=== PATIENT | female | born 1985 | race Caucasian/White ===

== ENCOUNTER 2017-09-26 18:25 | Emergency (ER) | payer MEDICAID ==
[2017-09-26] MEDS ORDERED: ASPIRIN 81 MG TABLET, CHEWABLE PO ONE (19:10)
[2017-09-26] MEDS ORDERED: MECLIZINE HCL 25 MG TABLET PO ONE (19:11)
--- NOTE | 2017-09-26 19:12 | ER Document Report ---
ED Medical Screen (RME) - General Chief Complaint: Chest Pain > 30 Stated Complaint: CHEST PAIN Time Seen by Provider: 09/26/17 19:10 Mode of Arrival: Ambulatory Information source: Patient Notes: Patient presents complaining of left-sided chest pain off and on for the past week that got worse around 5:00 this evening. Patient does report nausea and episode of sweating at home. Patient denies any cough or fever. Patient denies any medical history. Patient does report significant family history for IA at the age of 55. Patient does complain of feeling dizzy in which she describes as feeling off balance. I have greeted and performed a rapid initial assessment of this patient. A comprehensive ED assessment and evaluation of the patient, analysis of test results and completion of the medical decision making process will be conducted by additional ED providers. TRAVEL OUTSIDE OF THE [place] IN LAST 30 DAYS: No - Related Data Allergies/Adverse Reactions: azithromycin Allergy (Verified 09/26/17 18:26) Penicillins Allergy (Verified 09/26/17 18:26) contrast dye Allergy (Uncoded 09/26/17 18:26) Physical Exam - Vital signs Vitals: Temp Pulse Resp BP Pulse Ox 98.8 F 82 14 130/70 H 98 09/26/17 18:48 09/26/17 18:48 09/26/17 18:48 09/26/17 18:48 09/26/17 18:48 - Respiratory Respiratory status: No respiratory distress Chest status: Nontender Breath sounds: Normal. No: Rales, Rhonchi, Stridor, Wheezing Course - Vital Signs Vital signs: Temp Pulse Resp BP Pulse Ox 98.8 F 82 14 130/70 H 98 09/26/17 18:48 09/26/17 18:48 09/26/17 18:48 09/26/17 18:48 09/26/17 18:48
--- NOTE | 2017-09-26 19:32 | RADIOLOGY REPORT (SQ) ---
EXAM DESCRIPTION: CHEST PA/LAT COMPLETED DATE/TIME: 09/26/2017 7:24 pm REASON FOR STUDY: cp COMPARISON: None. EXAM PARAMETERS: NUMBER OF VIEWS: two views TECHNIQUE: Digital Frontal and Lateral radiographic views of the chest acquired. RADIATION DOSE: NA LIMITATIONS: none FINDINGS: LUNGS AND PLEURA: No opacities, masses or pneumothorax. No pleural effusion. MEDIASTINUM AND HILAR STRUCTURES: No masses or contour abnormalities. HEART AND VASCULAR STRUCTURES: Heart normal size. No evidence for failure. BONES: No acute findings. HARDWARE: None in the chest. OTHER: No other significant finding. IMPRESSION: NO SIGNIFICANT RADIOGRAPHIC FINDING IN THE CHEST. TECHNICAL DOCUMENTATION: JOB ID: [id number] [employer]- All Rights Reserved
[2017-09-26 19:48] LABS: ABSOLUTE BASOPHILS # (AUTO) 0.1 10^3/uL (0.0-0.2); ABSOLUTE EOSINOPHILS # (AUTO) 0.2 10^3/uL (0.0-0.6); ABSOLUTE LYMPHOCYTES (AUTO) 2.9 10^3/uL (0.5-4.7); ABSOLUTE MONOCYTES (AUTO) 0.7 10^3/uL (0.1-1.4); ABSOLUTE NEUT (AUTO) 7.2 10^3/uL (1.7-8.2); BASOPHILS % (AUTO) 0.8 % (0-2); EOSINOPHILS % (AUTO) 2.2 % (0-6); HEMOGLOBIN 14.8 g/dL (12.0-15.5); MEAN CORPUSCULAR HEMOGLOBIN 30.2 pg (27.0-33.4); MEAN CORPUSCULAR HGB CONC 33.6 g/dL (32.0-36.0); MEAN CORPUSCULAR VOLUME 90 fl (80-97); MONOCYTES % (AUTO) 5.9 % (3-13); PLATELET COUNT 353 10^3/uL (150-450); SEGMENTED NEUTROPHILS % (AUTO) 65.1 % (42-78); TOTAL CELLS COUNTED % (AUTO) 100 %; WHITE BLOOD COUNT 11.1 10^3/uL (4.0-10.5)
[2017-09-26 20:01] LABS: ALANINE AMINOTRANSFERASE 25 U/L (9-52); ALBUMIN 4.8 g/dL (3.5-5.0); ALKALINE PHOSPHATASE 53 U/L (38-126); ANION GAP 11 (5-19); ASPARTATE AMINO TRANSFERASE 17 U/L (14-36); BILIRUBIN,DIRECT 0.2 mg/dL (0.0-0.4); BILIRUBIN,TOTAL 0.2 mg/dL (0.2-1.3); BLOOD UREA NITROGEN 16 mg/dL (7-20); CARBON DIOXIDE 27 mmol/L (22-30); CHLORIDE 103 mmol/L (98-107); CREATINE KINASE 51 U/L (30-135); GLUCOSE 95 mg/dL (75-110); LIPASE 70.1 U/L (23-300); POTASSIUM 4.3 mmol/L (3.6-5.0); SODIUM 141.1 mmol/L (137-145); TOTAL PROTEIN 7.4 g/dL (6.3-8.2)
--- NOTE | 2017-09-26 20:08 | EKG REPORT ---
SEVERITY:- NORMAL ECG - SINUS RHYTHM : Confirmed by: Ferny Kidd 26-Sep-2017 20:07:57
[2017-09-26 20:19] LABS: CREATINE KINASE MB < 0.22 ng/mL (<4.55); TROPONIN I < 0.012 ng/mL
--- NOTE | 2017-09-26 20:29 | ER Document Report ---
ED General - General Chief Complaint: Chest Pain > 30 Stated Complaint: CHEST PAIN Time Seen by Provider: 09/26/17 19:10 Mode of Arrival: Ambulatory Notes: Patient is a 32-year-old female without past medical history, current everyday smoker who presents with 1 week of intermittent chest pain, intermittent shortness of breath all which became much worse today. Patient states today " it all just hit me" and she has had a dull, constant, throbbing, pressure-like sensation of her left chest for approximately past 12-14 hours. She notes that she occasionally feels short of breath and feels like she cannot always get a good deep breath. She also notes that sometimes her chest wall hurts more when she breathes. She denies any history of similar symptoms in the past. She has no prior history of DVT or pulmonary embolus. She does not use estrogen. She denies any hemoptysis, fever, cough, sputum production, trauma to the affected area, abdominal pain, vomiting or diaphoresis. Exertion does not worsen her symptoms. She has no prior cardiac history. She has not seen a primary care doctor regarding today's concerns. TRAVEL OUTSIDE OF THE [place] IN LAST 30 DAYS: No - Related Data Allergies/Adverse Reactions: azithromycin Allergy (Verified 09/26/17 18:26) Penicillins Allergy (Verified 09/26/17 18:26) contrast dye Allergy (Uncoded 09/26/17 18:26) Past Medical History - General Information source: Patient - Social History Smoking Status: Current Every Day Smoker Chew tobacco use (# tins/day): No Frequency of alcohol use: Occasional Drug Abuse: None Lives with: Parents Family History: Reviewed & Not Pertinent Patient has suicidal ideation: No Patient has homicidal ideation: No Renal/ Medical History: Denies: Hx Peritoneal Dialysis Psychiatric Medical History: Reports: Hx Depression Past Surgical History: Reports: Hx Gynecologic Surgery - DNC and , Hx Orthopedic Surgery - nose Review of Systems - Review of Systems Notes: Constitutional: Negative for fever. HENT: Negative for sore throat. Eyes: Negative for visual changes. Cardiovascular: Positive for chest pain. Respiratory: Positive for shortness of breath. Gastrointestinal: Negative for abdominal pain, vomiting or diarrhea. Genitourinary: Negative for dysuria. Musculoskeletal: Negative for back pain. Skin: Negative for rash. Neurological: Negative for headaches, weakness or numbness. 10 point ROS negative except as marked above and in HPI. Physical Exam - Vital signs Vitals: Temp Pulse Resp BP Pulse Ox 98.8 F 82 14 130/70 H 98 09/26/17 18:48 09/26/17 18:48 09/26/17 18:48 09/26/17 18:48 09/26/17 18:48 Interpretation: Normal Notes: PHYSICAL EXAMINATION: GENERAL: Well-appearing, well-nourished and in no acute distress. HEAD: Atraumatic, normocephalic. EYES: Pupils equal round and reactive to light, extraocular movements intact, sclera anicteric, conjunctiva are normal. ENT: nares patent, oropharynx clear without exudates. Moist mucous membranes. NECK: Normal range of motion, supple without lymphadenopathy LUNGS: Breath sounds clear to auscultation bilaterally and equal. No wheezes rales or rhonchi. HEART: Regular rate and rhythm without murmurs ABDOMEN: Soft, nontender, normoactive bowel sounds. No guarding, no rebound. No masses appreciated. EXTREMITIES: Normal range of motion, no pitting or edema. No cyanosis. NEUROLOGICAL: No focal neurological deficits. Moves all extremities spontaneously and on command. PSYCH: Normal mood, normal affect. SKIN: Warm, Dry, normal turgor, no rashes or lesions noted. Course - Re-evaluation Re-evalutation: 09/26/17 20:24 Presentation of chest pain in an otherwise well appearing patient. Low clinical suspicion for ACS given clinical history, exam, EKG without ST elevations or depressions, and negative initial troponin. HEART score less than or equal to 3. Do have somewhat of a concern for pulmonary embolus as patient is a smoker and does report some pleuritic component to her pain as well as some mild shortness of breath. Although she is PERC criteria negative her clinical history is concerning enough that I will proceed with a d-dimer to further exclude this diagnosis. CXR without evidence of pneumothorax or pneumonia. No widened mediastinum. Aortic dissection also seems unlikely given history, symmetric pulses, CXR, and vitals. Given the duration of the patient's symptoms I do not believe serial troponin markers are indicated. 09/26/17 21:33 D-dimer is negative. Patient's pain is improved. The exact etiology of her chest pain is unclear at this time it does not appear for any acute life- threatening pathology. At this time will discharge with return precautions and follow-up recommendations. Verbal discharge instructions given a the bedside and opportunity for questions given. Medication warnings reviewed. Patient is in agreement with this plan and has verbalized understanding of return precautions and the need for primary care follow-up in the next 24-72 hours. - Vital Signs Vital signs: Temp Pulse Resp BP Pulse Ox 98.4 F 79 14 130/66 H 97 09/26/17 21:50 09/26/17 21:50 09/26/17 18:48 09/26/17 21:50 09/26/17 21:50 - Laboratory Result Diagrams: 09/26/17 19:36 09/26/17 19:36 Laboratory results interpreted by me: 09/26/17 19:36 WBC 11.1 H - Diagnostic Test Radiology reviewed: Image reviewed, Reports reviewed Radiology results interpreted by me: 09/26/17 21:34 Chest x-ray: No acute will treat a pneumothorax - EKG Interpretation by Me Additional EKG results interpreted by me: 09/26/17 21:35 Sinus rhythm. Rate 79. No ST elevations or depressions. QTC is 395. Discharge - Discharge Clinical Impression: Chest pain Qualifiers: Chest pain type: unspecified Qualified Code(s): R07.9 - Chest pain, unspecified Fatigue Qualifiers: Fatigue type: unspecified Qualified Code(s): R53.83 - Other fatigue Condition: Good Disposition: HOME, SELF-CARE Additional Instructions: You were seen today for chest pain. The exact cause of your pain is unclear. However, based on your cardiac enzyme testing, chest x-ray, and EKG it does not appear that it is from an immediately life-threatening cause at this time. Although your testing here is normal is critical that you follow-up with your primary care physician for continued evaluation of this chest pain and possible stress testing. I recommended you see your physician within the next 24-48 hours to be evaluated for consideration of a stress test. Please return to emergency department immediately if you have worsening of your chest pain, shortness of breath, vomiting, become unable to exert yourself due to pain or difficulty breathing, you pass out, or have any pain that radiates into your arms, jaw, or back. Please also return if you have any additional symptoms that are concerning to you. Referrals: OMAYRA DANIEL MD [NO LOCAL MD] - Follow up as needed
[2017-09-26] MEDS ORDERED: LIDOCAINE 5% (700 MG) TRANSDERMAL ADH..PATCH TP ONE (20:30)
[2017-09-26 22:00] VITALS: BP 130/66
== END 2017-09-26 22:01 | disposition home or self-care (01) ==
LOC: ER 18:25
DX: R07.89 Other chest pain (principal); R07.81 Pleurodynia; R06.02 Shortness of breath; R53.83 Other fatigue; F17.200 Nicotine dependence, unspecified, uncomplicated; Z88.0 Allergy status to penicillin; Z88.1 Allergy status to other antibiotic agents; Z91.041 Radiographic dye allergy status
CPT/HCPCS: 93005; 99285; 36415; 82553; 82550; 83690; 84703; 85025; 80053; 84484; 85379; 71046; 93010; J3490

== ENCOUNTER → 2017-10-09 | Outpatient (CLI) | payer MEDICAID ==
--- NOTE | 2017-10-09 14:59 | RADIOLOGY REPORT (SQ) ---
EXAM DESCRIPTION: WRIST RIGHT 3 VIEWS COMPLETED DATE/TIME: 10/09/2017 2:46 pm REASON FOR STUDY: RIGHT WRIST PAIN M25.531 PAIN IN RIGHT WRIST COMPARISON: None. NUMBER OF VIEWS: Three views. TECHNIQUE: AP, lateral, and oblique radiographic images acquired of the right wrist. LIMITATIONS: None. FINDINGS: MINERALIZATION: Normal. BONES: No acute fracture or dislocation. No worrisome bone lesions. Normal alignment. SOFT TISSUES: No soft tissue swelling. No foreign body. OTHER: No other significant finding. IMPRESSION: NEGATIVE STUDY OF THE RIGHT WRIST. NO RADIOGRAPHIC EVIDENCE OF ACUTE INJURY. TECHNICAL DOCUMENTATION: JOB ID: [id number] [employer]- All Rights Reserved
== END ==
LOC: OD 14:20
PROVIDERS: ATTEND Nurse Practitioner Family
DX: M25.531 Pain in right wrist (principal)

== ENCOUNTER 2018-02-16 10:23 | Emergency (ER) | payer SELFPAY ==
[2018-02-16 10:30] VITALS: BP 126/72
--- NOTE | 2018-02-16 11:24 | ER Document Report ---
HPI - HPI Pain Level: 2 Notes: Patient is a 32-year-old female with no significant past medical history who presents to the ED complaining of redness and swelling to the lateral side of the left second toe 2-3 days. Patient states that she was applying Neosporin to the area without any relief. She has not noticed any purulent discharge or red streaks. Patient still able to ambulate, but does have pain associated. Denies any injury. Patient does state she has an allergy to azithromycin penicillins which causes a rash. No other concerns or complaints at this time. Denies any headache, fever, URI, sore throat, chest pain, palpitations, syncope, cough, shortness of breath, wheeze, dyspnea, abdominal pain, nausea/ vomiting/diarrhea, urinary retention, dysuria, hematuria, numbness/tingling, muscle paralysis/weakness, or rash. - ROS Systems Reviewed and Negative: Yes All other systems reviewed and negative - MUSCULOSKELETAL Musculoskeletal: REPORTS: Extremity pain - L Foot Past Medical History - Social History Smoking Status: Current Every Day Smoker Chew tobacco use (# tins/day): No Frequency of alcohol use: Rare Drug Abuse: None Family History: Reviewed & Not Pertinent Patient has suicidal ideation: No Patient has homicidal ideation: No Renal/ Medical History: Denies: Hx Peritoneal Dialysis Psychiatric Medical History: Reports: Hx Depression Past Surgical History: Reports: Hx Gynecologic Surgery - DNC and , Hx Orthopedic Surgery - nose Vertical Provider Document - CONSTITUTIONAL Agree With Documented VS: Yes Notes: PHYSICAL EXAMINATION: GENERAL: Well-appearing, well-nourished and in no acute distress. LUNGS: Breath sounds clear to auscultation bilaterally and equal. No wheezes rales or rhonchi. HEART: Regular rate and rhythm without murmurs, rubs, gallops. Musculoskeletal: Left foot/toes: FROM to passive/active. Strength 5+/5. N/V intact distal. No bony tenderness. Extremities: No cyanosis, clubbing, or edema b/l. Peripheral pulses 2+. Capillary refill less than 3 seconds. NEUROLOGICAL: Cranial nerves grossly intact. Normal speech, normal gait. Normal sensory, motor exams PSYCH: Normal mood, normal affect. SKIN: Left 2nd toe: + erythema, swelling, and small abscess (approx 1.4cm) to the lateral left mid toe, not involving the nail. No streaks or discharge. + tenderness and mild induration. - INFECTION CONTROL TRAVEL OUTSIDE OF THE [place] IN LAST 30 DAYS: No Course - Re-evaluation Re-evalutation: 02/16/18 11:20 Patient is an afebrile, well-hydrated, 32-year-old female who presents to the ED with a small abscess/cellulitis to the left second toe. Vitals are acceptable. PE is otherwise unremarkable for any neurovascular compromise, obvious tendon/ligament rupture, obvious fracture/dislocation, septic joint. A 22-gauge needle was utilized to puncture the small abscess to obtain purulent material for wound culture. Wound dressing was placed and wound instructions reviewed. No other further incision and drainage is warranted at this time based on H&P. Patient has a rash to penicillins, discuss cross-reactivity with Keflex. I will be sending her home with a prescription for Keflex and Bactrim. Conservative measures otherwise for symptoms. Recheck with your PCM in 2-3 days. Return to the ED with any worsening/concerning symptoms otherwise as reviewed in discharge. Patient is in agreement. - Vital Signs Vital signs: Temp Pulse Resp BP Pulse Ox 98.7 F 83 14 126/72 H 97 02/16/18 10:29 02/16/18 10:29 02/16/18 10:29 02/16/18 10:29 02/16/18 10:29 Procedures - Incision and Drainage Left Toe 2nd digit Time completed: 11:15 - pt tolerated proc well, no complications Type: Simple mL's of anesthetic: 0 Blade size: Other - 22g needle Incision Method: Incision made with needle Amount/type of drainage: scant purulent Discharge - Discharge Clinical Impression: Infection of toe Condition: Stable Disposition: HOME, SELF-CARE Additional Instructions: Keep the skin clean Wash with soap and water Tylenol/ibuprofen if needed Triple antibiotic ointment daily Take medication as directed Epsom salt soaks Monitor for any worsening symptoms Recheck with your PCM in 2-3 days Consider consult with General Surgeon for ongoing/worsening symptoms Return to the ED with any worsening symptoms and/or development of fever, headache, chest pain, palpitations, syncope, shortness of breath, trouble breathing, abdominal pain, n/v/d, abscess, purulent discharge, red streaks, worsening swelling, or other worsening symptoms that are concerning to you. Prescriptions: Cephalexin Monohydrate [Keflex 500 mg Capsule] 500 mg PO BID #20 capsule Sulfamethoxazole/Trimethoprim [Bactrim Ds Tablet] 1 each PO BID #20 tablet Forms: Elevated Blood Pressure, Return to Work Referrals: ELOISA GRANT MD [ACTIVE STAFF] - Follow up as needed
== END 2018-02-16 11:30 | disposition home or self-care (01) ==
LOC: ER 10:23
DX: L02.612 Cutaneous abscess of left foot (principal); L03.032 Cellulitis of left toe; F17.200 Nicotine dependence, unspecified, uncomplicated
CPT/HCPCS: 99283

== ENCOUNTER 2018-02-18 22:10 | Emergency (ER) | payer SELFPAY ==
[2018-02-18 22:59] VITALS: BP 110/66
--- NOTE | 2018-02-19 00:35 | ER Document Report ---
HPI - HPI Pain Level: 4 Context: Patient is a 32-year-old female who returns emergency department the chief complaint of left second digit on her foot worsening pain, swelling and redness. Patient states that she was here couple of days ago started on antibiotics which she has been compliant with. She denies any fevers or chills , streaking. States it is increased in swelling size but is been localized to her toe and is not involving the distal part of her toe. Past Medical History - Social History Smoking Status: Never Smoker Family History: Reviewed & Not Pertinent Renal/ Medical History: Denies: Hx Peritoneal Dialysis Psychiatric Medical History: Reports: Hx Depression Past Surgical History: Reports: Hx Gynecologic Surgery - DNC and , Hx Orthopedic Surgery - nose Vertical Provider Document - CONSTITUTIONAL Agree With Documented VS: Yes Notes: PHYSICAL EXAM GENERAL: Alert, interacts well. EXTREMITIES: Moves all 4 extremities spontaneously. No edema,dorsalis pedis pulses 2/4 bilaterally. No cyanosis. NEUROLOGICAL: Alert and oriented x4. Normal speech. PSYCH: Normal affect, normal mood. SKIN: Warm, dry, normal turgor. Erythema, tenderness and fluctuance over the proximal phalanx of the left foot second digit with visible puncture wounds indicative of possible insect bite without any significant purulent drainage. - INFECTION CONTROL TRAVEL OUTSIDE OF THE [place] IN LAST 30 DAYS: No Course - Re-evaluation Re-evalutation: 02/19/18 03:18 Patient is a 32-year-old female is hemodynamically stable, no acute stress and afebrile. No evidence of tenosynovitis, osteomyelitis. Site was anesthetized and I&D performed with minimal purulent superficial tissue removed. Patient to follow-up in 2-3 days for wound check. To continue taking antibiotics as directed. - Vital Signs Vital signs: Temp Pulse Resp BP Pulse Ox 98.0 F 82 16 110/66 98 02/18/18 22:58 02/18/18 22:58 02/18/18 22:58 02/18/18 22:58 02/18/18 22:58 - Laboratory Result Diagrams: 02/19/18 01:03 02/19/18 01:03 - Diagnostic Test Radiology reviewed: Image reviewed, Reports reviewed Procedures - Incision and Drainage Left Foot 2nd digit Type: Simple Anesthetic type: 1% Lidocaine mL's of anesthetic: 15 Blade size: 11 I&D procedure: Betadine prep applied Incision Method: Incision made by scalpel Discharge - Discharge Clinical Impression: Infection of toe Condition: Good Disposition: HOME, SELF-CARE Additional Instructions: Please return the emergency department in 3 days for wound check. ABSCESS: You have an abscess (boil). This a pus-forming infection, usually due to staph. Some boils may be left to drain on their own, but most require lancing. From the time the tender lump first appears, it may be three or four days before the abscess is ready to jake. Local heat and rest help at this stage of treatment. An antibiotic may prevent spread of the infection. Once the abscess is opened, packing may be placed into it. This is done so pus is not sealed inside by premature closure of the cavity. The packing will be removed at your follow-up visit or you may be advised to remove it yourself at home. Sometimes this packing must be replaced a few times during healing. The wound will heal with surprisingly little scar. Depending on the size and location of an abscess, healing can take one to four weeks. You may shower and wash the area around the incision site two or three times a day. Antibiotics may be prescribed, but are usually not necessary after an abscess has been drained. If you develop fever, chills, worsening pain, or increasing swelling in the area, call the doctor or return immediately. POST INCISION AND DRAINAGE: You have had an incision made to allow drainage of an abscess. The incision must remain open so that pus and debris can drain from the wound. If the abscess cavity is large, packing is placed. This keeps the tissues from collapsing and trapping pus inside, while the body shrinks the cavity. The packing may need to be replaced every day or two. The physician will instruct you on the packing. Keep a bulky dressing over the area. Replace it if it becomes saturated with blood or pus. Do not disturb the packing (if present). You may shower and cleanse the area with gentle soap and warm water two or three times a day. Local warmth may be soothing, and may promote faster healing. Return if you develop high fever or chills, or if you note spreading redness, increasing swelling, or increasing tenderness. ORAL NARCOTIC MEDICATION: You have been given a prescription for pain control. This medication is a narcotic. It's best taken with food, as nausea can result if taken on an empty stomach. Don't operate machinery or drive within six hours of taking this medication. Do not combine this medicine with alcohol, or with any medication which can cause sedation (such as cold tablets or sleeping pills) unless you get permission from the physician. Narcotics tend to cause constipation. If possible, drink plenty of fluids and eat a diet high in fiber and fruits. FOLLOW-UP CARE: Most simple abscesses will not require a follow up visit. If you had packing placed in the abscess, remove it as instructed by the physician. If you have been referred to a physician for follow-up care, call the physicians office for an appointment as you were instructed or within the next two days. If you experience worsening or a significant change in your symptoms, return to the Emergency Department at any time for re-evaluation. Prescriptions: Hydrocodone/Acetaminophen [[place] 5-325 mg Tablet] 1 tab PO Q6HP PRN #10 tablet PRN Reason:
[2018-02-19] MEDS ORDERED: CLINDAMYCIN 600 MG/D5W RTU 600 MG/50 ML RTUPB IV ONE (01:08)
[2018-02-19 01:18] LABS: ABSOLUTE BASOPHILS # (AUTO) 0.1 10^3/uL (0.0-0.2); ABSOLUTE EOSINOPHILS # (AUTO) 0.4 10^3/uL (0.0-0.6); ABSOLUTE LYMPHOCYTES (AUTO) 3.3 10^3/uL (0.5-4.7); ABSOLUTE MONOCYTES (AUTO) 0.7 10^3/uL (0.1-1.4); ABSOLUTE NEUT (AUTO) 6.5 10^3/uL (1.7-8.2); BASOPHILS % (AUTO) 1.2 % (0-2); EOSINOPHILS % (AUTO) 3.2 % (0-6); HEMATOCRIT 43.3 % (36.0-47.0); LYMPHOCYTES % (AUTO) 29.9 % (13-45); MEAN CORPUSCULAR HEMOGLOBIN 30.9 pg (27.0-33.4); MEAN CORPUSCULAR HGB CONC 34.7 g/dL (32.0-36.0); MEAN CORPUSCULAR VOLUME 89 fl (80-97); MONOCYTES % (AUTO) 6.6 % (3-13); PLATELET COUNT 281 10^3/uL (150-450); RED BLOOD COUNT 4.85 10^6/uL (3.72-5.28); RED CELL DISTRIBUTION WIDTH 13.3 % (11.5-14.0); SEGMENTED NEUTROPHILS % (AUTO) 59.1 % (42-78); TOTAL CELLS COUNTED % (AUTO) 100 %
--- NOTE | 2018-02-19 01:20 | RADIOLOGY REPORT (SQ) ---
EXAM DESCRIPTION: XR TOES 2 OR MORE VIEWS COMPLETED DATE/TME: 02/19/2018 00:34 CLINICAL HISTORY: 32 years, Female, 2nd digit, erythema tendnerness swelling COMPARISON: None. FINDINGS: Single AP view of the foot and oblique view of the left second digit. No acute fracture or dislocation. Normal osseous mineralization. No radiopaque foreign body. IMPRESSION: No acute fracture or dislocation. 2010 [employer]- All Rights Reserved
[2018-02-19 01:39] LABS: ANION GAP 13 (5-19); BLOOD UREA NITROGEN 14 mg/dL (7-20); CALCIUM 9.5 mg/dL (8.4-10.2); CARBON DIOXIDE 22 mmol/L (22-30); CHLORIDE 109 mmol/L (98-107); GLUCOSE 86 mg/dL (75-110); POTASSIUM 4.5 mmol/L (3.6-5.0); SODIUM 143.7 mmol/L (137-145)
[2018-02-19] MEDS ORDERED: LIDOCAINE 1% INJ-PF (10 MG/ML) 30 ML SDV INJ ONE (01:57)
[2018-02-19] MEDS ORDERED: HYDROCODONE/ACETAMINOPHEN 5-325 MG (6 TAB/ER DISP) PO PRN (03:20)
== END 2018-02-19 03:48 | disposition home or self-care (01) ==
LOC: ER 22:10
DX: M79.675 Pain in left toe(s) (principal); S91.135A Puncture wound without foreign body of left lesser toe(s) without damage to nail, initial encounter; L08.9 Local infection of the skin and subcutaneous tissue, unspecified; X58.XXXA Exposure to other specified factors, initial encounter
CPT/HCPCS: 36415; 80048; 84703; 85025; 96365; 99284

== ENCOUNTER 2018-06-27 16:51 | Inpatient (IN) | payer SELFPAY ==
[2018-06-27] MEDS ORDERED: NORMAL SALINE 1000 ML 1,000 ML IV ONE (18:31)
[2018-06-27 18:39] LABS: ABSOLUTE BASOPHILS # (AUTO) 0.1 10^3/uL (0.0-0.2); ABSOLUTE EOSINOPHILS # (AUTO) 0.3 10^3/uL (0.0-0.6); ABSOLUTE LYMPHOCYTES (AUTO) 2.6 10^3/uL (0.5-4.7); ABSOLUTE MONOCYTES (AUTO) 0.9 10^3/uL (0.1-1.4); ABSOLUTE NEUT (AUTO) 8.9 10^3/uL (1.7-8.2); EOSINOPHILS % (AUTO) 2.1 % (0-6); HEMATOCRIT 40.9 % (36.0-47.0); HEMOGLOBIN 14.3 g/dL (12.0-15.5); LYMPHOCYTES % (AUTO) 20.3 % (13-45); MEAN CORPUSCULAR HEMOGLOBIN 30.9 pg (27.0-33.4); MEAN CORPUSCULAR HGB CONC 34.9 g/dL (32.0-36.0); MEAN CORPUSCULAR VOLUME 89 fl (80-97); MONOCYTES % (AUTO) 7.1 % (3-13); PLATELET COUNT 290 10^3/uL (150-450); RED BLOOD COUNT 4.62 10^6/uL (3.72-5.28); RED CELL DISTRIBUTION WIDTH 12.9 % (11.5-14.0); SEGMENTED NEUTROPHILS % (AUTO) 69.5 % (42-78); TOTAL CELLS COUNTED % (AUTO) 100 %; WHITE BLOOD COUNT 12.8 10^3/uL (4.0-10.5)
--- NOTE | 2018-06-27 18:45 | RADIOLOGY REPORT (SQ) ---
EXAM DESCRIPTION: FOOT RIGHT COMPLETE COMPLETED DATE/TIME: 06/27/2018 6:07 pm REASON FOR STUDY: Pain/swelling s/p stepping on something pain in the plantar arch COMPARISON: None. NUMBER OF VIEWS: Three views. TECHNIQUE: AP, lateral and oblique radiographic images acquired of the right foot. LIMITATIONS: None. FINDINGS: MINERALIZATION: Normal. BONES: No acute fracture or dislocation. No worrisome bone lesions. JOINTS: No effusions. SOFT TISSUES: No soft tissue swelling. No foreign body. OTHER: No other significant finding. IMPRESSION: NEGATIVE STUDY OF THE RIGHT FOOT. NO RADIOGRAPHIC EVIDENCE OF ACUTE INJURY. TECHNICAL DOCUMENTATION: JOB ID: [id number] [employer]- All Rights Reserved Reading location - IP/workstation name: [email or web address]
[2018-06-27] MEDS ORDERED: ONDANSETRON HCL INJ/PF 4 MG/2 ML SDV IV ONE (19:02)
[2018-06-27] MEDS ORDERED: FENTANYL CITRATE INJ/PF 100 MCG/2 ML AMPUL IV ONE (19:02)
[2018-06-27 19:09] LABS: ALANINE AMINOTRANSFERASE 27 U/L (9-52); ALBUMIN 4.2 g/dL (3.5-5.0); ALKALINE PHOSPHATASE 55 U/L (38-126); ANION GAP 14 (5-19); ASPARTATE AMINO TRANSFERASE 19 U/L (14-36); BILIRUBIN,DIRECT 0.3 mg/dL (0.0-0.4); BILIRUBIN,TOTAL 0.5 mg/dL (0.2-1.3); BLOOD UREA NITROGEN 16 mg/dL (7-20); CALCIUM 9.5 mg/dL (8.4-10.2); CARBON DIOXIDE 20 mmol/L (22-30); CHLORIDE 107 mmol/L (98-107); GLUCOSE 98 mg/dL (75-110); POTASSIUM 4.4 mmol/L (3.6-5.0); SODIUM 140.9 mmol/L (137-145)
[2018-06-27] MEDS ORDERED: METHYLPREDNISOLONE INJ 125 MG/2 ML SDV IV ONE (19:47)
[2018-06-27] MEDS ORDERED: DIPHENHYDRAMINE HCL 50 MG/ML VIAL IV ONE (19:48)
[2018-06-27] MEDS ORDERED: FAMOTIDINE INJ/PF 20 MG/2 ML SDV IV ONE (19:48)
[2018-06-27] MEDS ORDERED: CEFTRIAXONE 1 GM/D5W RTU 1 GM/50 ML RTUPB IV ONE (19:49)
[2018-06-27] MEDS ORDERED: KETOROLAC TROMETHAMINE INJ/PF 30 MG/1 ML SDV IV ONE (20:20)
--- NOTE | 2018-06-27 21:36 | RADIOLOGY REPORT (SQ) ---
CT right lower extremity/foot with IV contrast HISTORY: Trauma two weeks ago, cut her foot, pain and swelling since. Evaluate for abscess. This exam was performed according to our departmental dose-optimization program which includes automated exposure control, adjustment of the mA and/or kVp according to patient size and/or use of iterative reconstruction technique where applicable. FINDINGS: No evidence for radiopaque foreign body. No fracture. No significant fluid collection to suggest abscess. There is mild subcutaneous edema over the plantar surface of the foot with mild thickening of the skin. This may represent cellulitis. IMPRESSION: Evidence for inflammation of the plantar surface of the foot, may represent cellulitis but no significant fluid collection. No radiopaque foreign body.
[2018-06-27 22:24] LABS: APPEARANCE,URINE CLEAR; BILIRUBIN,URINE NEGATIVE (NEGATIVE); COLOR,URINE STRAW; GLUCOSE, URINE NEGATIVE (NEGATIVE); KETONES,URINE NEGATIVE (NEGATIVE); LEUKOCYTE ESTERASE,URINE NEGATIVE (NEGATIVE); NITRITE,URINE NEGATIVE (NEGATIVE); PROTEIN,URINE NEGATIVE (NEGATIVE); URINE SPECIFIC GRAVITY 1.054; UROBILINOGEN,URINE NEGATIVE mg/dL (<2.0)
--- NOTE | 2018-06-27 22:33 | ER Document Report ---
ED Extremity Problem, Lower - General Chief Complaint: Foot Injury Stated Complaint: FOOT PAIN Time Seen by Provider: 06/27/18 17:44 Mode of Arrival: Ambulatory Information source: Patient Notes: Patient is a 33-year-old female comes emergency room complaining of right foot pain and swelling. Patient states that last week she stepped on something and punctured her right foot on the bottom. She does not know what it was and could not find it. Over the next couple days it got more painful and in the last 2-3 days it became exceptionally swollen and very painful to where she cannot hardly even touch her foot on the floor. She states she waited to the last possible moment to come in. She has had some low-grade fevers. But denies any nausea vomiting or diarrhea. Last menstrual period was approximately 3 days ago she does admit to smoking a pack of cigarettes a day she has allergies to penicillin, contrast dye, and Zithromax. TRAVEL OUTSIDE OF THE [place] IN LAST 30 DAYS: No - HPI Patient complains to provider of: Injury, Pain, Swelling Location: Ankle, Foot Occurred: Last week Where: Home Onset/Duration: Sudden, Persistent, Worse Quality of pain: Pressure, Sharp, Throbbing Severity: Severe Pain Level: 4 Context: Barefoot Recent injury: Yes Associated symptoms: Unable to bear weight Exacerbated by: Movement, Walking Relieved by: Nothing - Related Data Allergies/Adverse Reactions: azithromycin Allergy (Verified 09/26/17 18:26) Penicillins Allergy (Verified 09/26/17 18:26) contrast dye Allergy (Uncoded 09/26/17 18:26) Past Medical History - General Information source: Patient - Social History Smoking Status: Current Every Day Smoker Cigarette use (# per day): Yes Chew tobacco use (# tins/day): No Smoking Education Provided: Yes Lives with: Family Family History: Reviewed & Not Pertinent Patient has suicidal ideation: No Patient has homicidal ideation: No Renal/ Medical History: Denies: Hx Peritoneal Dialysis Psychiatric Medical History: Reports: Hx Depression Past Surgical History: Reports: Hx Gynecologic Surgery - DNC and , Hx Orthopedic Surgery - nose Review of Systems - Review of Systems Constitutional: Chills EENT: No symptoms reported Cardiovascular: No symptoms reported Respiratory: No symptoms reported Gastrointestinal: No symptoms reported Genitourinary: No symptoms reported Female Genitourinary: No symptoms reported Musculoskeletal: No symptoms reported Skin: Change in color, Rash, Other - Lymphangitis Hematologic/Lymphatic: No symptoms reported Neurological/Psychological: No symptoms reported -: Yes All other systems reviewed and negative Physical Exam - Vital signs Vitals: Temp Pulse Resp BP Pulse Ox 98.4 F 78 20 120/67 97 06/27/18 17:06 06/27/18 17:06 06/27/18 17:06 06/27/18 17:06 06/27/18 17:06 Interpretation: Normal - Notes Notes: Patient is a well-nourished well-developed 33-year-old female she is in no apparent distress but obvious pain and discomfort. - General General appearance: Alert, Other - Uncomfortable appearing - HEENT Head: Normocephalic, Atraumatic Eyes: Normal - Respiratory Respiratory status: No respiratory distress Chest status: Nontender Breath sounds: Normal. No: Productive cough, Rales, Rhonchi, Stridor, Wheezing Chest palpation: Normal - Cardiovascular Rhythm: Regular Heart sounds: Normal auscultation Murmur: No - Abdominal Inspection: Normal Distension: No distension, Distended bladder Bowel sounds: Normal Tenderness: Nontender Organomegaly: No organomegaly - Extremities General upper extremity: Normal inspection, Nontender, Normal ROM, Normal strength General lower extremity: Tender, Edema, Normal weight bearing. No: Normal color , Normal ROM, Normal strength, Normal temperature, Abida's sign - Neurological Neuro grossly intact: Yes Cognition: Normal Orientation: AAOx4, Disoriented to time Edd Coma Scale Eye Opening: Spontaneous [place] Coma Scale Verbal: Oriented [place] Coma Scale Motor: Obeys Commands Edd Coma Scale Total: 15 - Skin Skin Temperature: Warm Skin Moisture: Dry Skin Color: Erythema Course - Re-evaluation Re-evalutation: 06/27/18 22:34 Physical examination patient displays herself as being a tenosynovitis of the foot minimally a severe cellulitis versus abscess. Discussion with patient she had an allergy to contrast dye and felt it was worth the assumption risk to go ahead and pretreat her so we gave Solu-Medrol 100 Benadryl 50 and Pepcid 20 IV 30 meds prior to the CT being done. She was able to handle that with that contrast with the pretreatment. Her CT shows a really bad cellulitis and no sign of abscess at this time. She does have a 12 a white count and with her having inability to bear weight at this time it is felt that she needs to be admitted. I discussed this with Dr. Andrade my attending she did examine the female as well and she agreed with my assessment of the tenosynovitis/abscess/ cellulitis as far as admission goes. I will contact medicine first and if they would like I will contact your total for a consult tomorrow. - Vital Signs Vital signs: Temp Pulse Resp BP Pulse Ox 98.5 F 48 L 16 104/59 L 96 06/27/18 23:36 06/27/18 23:36 06/27/18 23:36 06/27/18 23:36 06/27/18 23:36 - Laboratory Result Diagrams: 06/27/18 18:22 06/27/18 18:22 Laboratory results interpreted by me: 06/27/18 06/27/18 06/27/18 18:22 18:22 22:01 WBC 12.8 H Absolute Neutrophils 8.9 H Carbon Dioxide 20 L Urine Blood SMALL H Discharge - Discharge Clinical Impression: Tenosynovitis Cellulitis Qualifiers: Site of cellulitis: extremity Site of cellulitis of extremity: lower extremity Laterality: right Qualified Code(s): L03.115 - Cellulitis of right lower limb Condition: Stable Disposition: ADMITTED INPATIENT Admitting Provider: Hospitalist Unit Admitted: Medical Floor
[2018-06-27] MEDS ORDERED: HYDROMORPHONE HCL INJ/PF 2 MG/ML AMPULE IV ONE (22:45)
[2018-06-27] MEDS ORDERED: VANCOMYCIN HCL INJ 1000 MG VIAL IV ONE (22:48)
[2018-06-27] MEDS ORDERED: PROMETHAZINE HCL 25 MG TABLET PO PRN (23:40)
[2018-06-27] MEDS ORDERED: ACETAMINOPHEN 650 MG SUPP.RECT PR PRN (23:40)
[2018-06-27] MEDS ORDERED: MAG HYDROX/AL HYDROX/SIMETH SUSP 30 ML UDCUP PO PRN (23:40)
[2018-06-27] MEDS ORDERED: CLINDAMYCIN 600 MG/D5W RTU 600 MG/50 ML RTUPB IV ONE (23:45)
[2018-06-28] MEDS: OXYCODONE-ACETAMINOPHEN 5-325 MG TABLET PO PRN ×3 (00:49→14:30)
[2018-06-28] MEDS: TEMAZEPAM 7.5 MG CAPSULE PO PRN (01:20)
--- NOTE | 2018-06-28 02:41 | PDOC H&P ---
History of Present Illness Admission Date/PCP: 06/27/18 23:09 Patient complains of: right foot pain History of Present Illness: MAI MCDANIEL is a 33 year old female who comes to the emergency department for right foot pain. Patient tells me she is stepped into something 2 weeks ago with puncture in the right plantar area, she does not know what was on the floor but initially she noted erythema on on the site of puncture, 2-3 days ago that has been getting worse with increased erythema extending to the leg, swelling, excruciating pain on the plantar area, patient walks on tiptoes but the pain has been intolerable and she decided to come to the emergency department. Do not see any physician and was not on any antibiotic. Has been feeling cold last night but denies any fever or chills, has been nauseous but no vomiting. CT of the right foot shows inflammation in the plantar surface with mild thickening skin, negative for fluid collection or foreign body. ED attending was concern of tendosynovitis and ask hospitalist to admit the patient to have orthopedics consultation. Past Medical History GI Medical History: Reports: Other - Interstitial cystitis Psychiatric Medical History: Reports: Depression Past Surgical History Past Surgical History: Reports: Orthopedic Surgery - nose, Other - I&D Social History Lives with: Family Smoking Status: Current Every Day Smoker - 1 pack last 3 days Number of Years Smokin Last Time Smoked: 06/27/2018 Frequency of Alcohol Use: Occasional Hx Recreational Drug Use: No - denies Drugs: None Hx Prescription Drug Abuse: No Past Social History Note: Lives with her son and mother Family History Family History: Reviewed & Not Pertinent Family History: Mother alive, 62 years old with no medical condition. Her father on his 60s with history of hypertension and myocardial infarction Parental Family History Reviewed: Yes - As above Children Family History Reviewed: NA Sibling(s) Family History Reviewed.: NA Medication/Allergy Home Medications: No Home Medications 06/28/18 Allergies/Adverse Reactions: azithromycin Allergy (Verified 09/26/17 18:26) Penicillins Allergy (Verified 09/26/17 18:26) contrast dye Allergy (Uncoded 09/26/17 18:26) Review of Systems Review of Systems: As outlined in the HPI, all others negative Physical Exam Vital Signs: Temp Pulse Resp BP Pulse Ox 98.5 F 48 L 16 104/59 L 96 06/27/18 23:36 06/27/18 23:36 06/27/18 23:36 06/27/18 23:36 06/27/18 23:36 Additional comments: General appearance: Well-developed, well-nourished, alert and cooperative, and appears to be in no acute distress Head: Normocephalic Eyes: PEERL, EOMI, vision is grossly intact. Ears: External auditory canal and tympanic membranes clear, hearing grossly intact. Nose: No nasal discharge. Throat: Oral cavity and pharynx normal. No inflammation, swelling, exudate or lesions. Neck: Neck supple, nontender without lymphadenopathy, masses or thyromegaly. Cardiac: Normal S1 and S2. No S3, S4 or murmurs. Rhythm is regular and bradycardic. There is no peripheral edema, cyanosis or pallor. Extremities are warm and well perfused. Capillary refill is less than 2 seconds. No carotid bruits. Lungs: Clear to auscultation and percussion without rales, rhonchi, wheezing or diminished breath sounds. Not using accessory muscles. Abdomen: Positive bowel sounds. Soft. Nondistended, nontender. No guarding or rebound. No masses. No hepatosplenomegaly Extremities right foot: Right plantar area with erythema in the mid internal area, radiated to the internal leg, swelling, severe tenderness to palpation, do not appreciate secretions. Neurological: Cranial nerves II through XII grossly intact. Strength and sensation symmetric and intact throughout. Reflexes 2+ throughout. Skin: As above, the rest normal texture and turgor with no lesions or eruptions , warm and dry. Psychiatric: The mental examination revealed the patient was oriented to person , place, and time. The patient was able to demonstrate good judgment on recent , without hallucinations, abnormal affect or abnormal behaviors. Results Laboratory Results: 06/27/18 06/27/18 06/27/18 18:22 18:22 18:50 WBC 12.8 H RBC 4.62 Hgb 14.3 Hct 40.9 MCV 89 MCH 30.9 MCHC 34.9 RDW 12.9 Plt Count 290 Seg Neutrophils % 69.5 Lymphocytes % 20.3 Monocytes % 7.1 Eosinophils % 2.1 Basophils % 1.0 Absolute Neutrophils 8.9 H Absolute Lymphocytes 2.6 Absolute Monocytes 0.9 Absolute Eosinophils 0.3 Absolute Basophils 0.1 Sodium 140.9 Potassium 4.4 Chloride 107 Carbon Dioxide 20 L Anion Gap 14 BUN 16 Creatinine 0.61 Est GFR ( Amer) > 60 Est GFR (Non-Af Amer) > 60 Glucose 98 Lactic Acid 0.8 Calcium 9.5 Total Bilirubin 0.5 Direct Bilirubin 0.3 AST 19 ALT 27 Alkaline Phosphatase 55 Total Protein 7.0 Albumin 4.2 Urine Color Urine Appearance Urine pH Ur Specific [place] Urine Protein Urine Glucose (UA) Urine Ketones Urine Blood Urine Nitrite Urine Bilirubin Urine Urobilinogen Ur Leukocyte Esterase Urine WBC (Auto) Urine RBC (Auto) Squamous Epi Cells Auto Urine Mucus (Auto) Urine Ascorbic Acid Urine HCG, Qual 06/27/18 22:01 WBC RBC Hgb Hct MCV MCH MCHC RDW Plt Count Seg Neutrophils % Lymphocytes % Monocytes % Eosinophils % Basophils % Absolute Neutrophils Absolute Lymphocytes Absolute Monocytes Absolute Eosinophils Absolute Basophils Sodium Potassium Chloride Carbon Dioxide Anion Gap BUN Creatinine Est GFR ( Amer) Est GFR (Non-Af Amer) Glucose Lactic Acid Calcium Total Bilirubin Direct Bilirubin AST ALT Alkaline Phosphatase Total Protein Albumin Urine Color STRAW Urine Appearance CLEAR Urine pH 6.0 Ur Specific [place] 1.054 Urine Protein NEGATIVE Urine Glucose (UA) NEGATIVE Urine Ketones NEGATIVE Urine Blood SMALL H Urine Nitrite NEGATIVE Urine Bilirubin NEGATIVE Urine Urobilinogen NEGATIVE Ur Leukocyte Esterase NEGATIVE Urine WBC (Auto) 0 Urine RBC (Auto) 1 Squamous Epi Cells Auto <1 Urine Mucus (Auto) RARE Urine Ascorbic Acid NEGATIVE Urine HCG, Qual NEGATIVE Impressions: Foot X-Ray 06/27/18 00:00 IMPRESSION: NEGATIVE STUDY OF THE RIGHT FOOT. NO RADIOGRAPHIC EVIDENCE OF ACUTE INJURY. Lower Extremity CT 06/27/18 20:33 IMPRESSION: Evidence for inflammation of the plantar surface of the foot, may represent cellulitis but no significant fluid collection. No radiopaque foreign body. Assessment & Plan - Diagnosis (1) Cellulitis of right foot Is this a current diagnosis for this admission?: Yes Plan: Patient comes to the emergency department with signs or symptoms of cellulitis of the right foot after stepping into an object about 2 weeks ago. ED attending was concerned of tendosynovitis and we will place a consult for orthopedics for evaluation and recommendations. In the meantime patient will be on IV clindamycin. Blood cultures sent please follow identification and sensitivity. P.o. pain medication as needed. IV antiemetics as needed. Tetanus vaccine. - Time Time Spent: 30 to 50 Minutes - Inpatient Certification Based on my medical assessment, after consideration of the patient's comorbidities, presenting symptoms, or acuity I expect that the services needed warrant INPATIENT care.: Yes I certify that my determination is in accordance with my understanding of Medicare's requirements for reasonable and necessary INPATIENT services [42 CFR 412.3e].: Yes Medical Necessity: Risk of Complication if Not Cared For in Hospital
[2018-06-28] MEDS: HEPARIN SOD (PORCINE) 5,000 UNIT/ML 1 ML SYRINGE SUBCUT SCH ×3 (05:35→21:27)
[2018-06-28 06:02] LABS: ABSOLUTE LYMPHOCYTES (AUTO) 0.8 10^3/uL (0.5-4.7); ABSOLUTE MONOCYTES (AUTO) 0.1 10^3/uL (0.1-1.4); ABSOLUTE NEUT (AUTO) 9.4 10^3/uL (1.7-8.2); BASOPHILS % (AUTO) 0.4 % (0-2); HEMATOCRIT 40.1 % (36.0-47.0); LYMPHOCYTES % (AUTO) 7.6 % (13-45); MEAN CORPUSCULAR HEMOGLOBIN 31.4 pg (27.0-33.4); MEAN CORPUSCULAR HGB CONC 34.9 g/dL (32.0-36.0); MEAN CORPUSCULAR VOLUME 90 fl (80-97); MONOCYTES % (AUTO) 1.1 % (3-13); PLATELET COUNT 277 10^3/uL (150-450); RED BLOOD COUNT 4.46 10^6/uL (3.72-5.28); SEGMENTED NEUTROPHILS % (AUTO) 90.9 % (42-78); TOTAL CELLS COUNTED % (AUTO) 100 %; WHITE BLOOD COUNT 10.4 10^3/uL (4.0-10.5)
[2018-06-28 06:09] LABS: INTERNATIONAL RATION (INR) 0.95; PROTHROMBIN TIME 13.1 SEC (11.4-15.4)
[2018-06-28 06:10] LABS: PARTIAL THROMBOPLASTIN TIME 28.3 SEC (23.5-35.8)
[2018-06-28 06:27] LABS: ANION GAP 12 (5-19); BLOOD UREA NITROGEN 15 mg/dL (7-20); CARBON DIOXIDE 21 mmol/L (22-30); CHLORIDE 109 mmol/L (98-107); GLUCOSE 156 mg/dL (75-110); POTASSIUM 4.8 mmol/L (3.6-5.0); SODIUM 141.9 mmol/L (137-145)
[2018-06-28] MEDS ORDERED: MORPHINE SULFATE 10 MG/ML INJ IV ONE (09:30)
[2018-06-28] MEDS: NICOTINE 14 MG/24 HR PATCH.TD24 TD SCH (09:44)
[2018-06-28] MEDS: CLINDAMYCIN 600 MG/D5W RTU 600 MG/50 ML RTUPB IV SCH ×2 (09:46→17:17)
--- NOTE | 2018-06-28 12:52 | PDOC PROGRESS REPORT ---
Subjective Progress Note for:: 06/28/18 Subjective:: No acute events overnight. Patient is still complaining of left foot pain which has been consistent since admission patient stated that she has tried morphine, hydrocodone and none of them have improved her pain significantly. Denies any fever, chills, nausea, vomiting, shortness of breath, diarrhea, constipation or any urinary symptoms. Reason For Visit: RIGHT FOOT CELLULITIS Physical Exam Vital Signs: Temp Pulse Resp BP Pulse Ox 97.4 F 74 16 126/65 H 100 06/28/18 12:02 06/28/18 12:02 06/28/18 12:02 06/28/18 12:02 06/28/18 12:02 Intake & Output 06/27/18 06/28/18 06/29/18 06:59 06:59 06:59 Intake Total 150 100 Balance 150 100 Weight 67.3 kg General appearance: PRESENT: no acute distress, well-developed, well-nourished Head exam: PRESENT: atraumatic, normocephalic Eye exam: PRESENT: conjunctiva pink, EOMI, PERRLA. ABSENT: scleral icterus Ear exam: PRESENT: normal external ear exam Mouth exam: PRESENT: moist, tongue midline Neck exam: ABSENT: carotid bruit, JVD, lymphadenopathy, thyromegaly Respiratory exam: PRESENT: clear to auscultation sherrill. ABSENT: rales, rhonchi, wheezes Cardiovascular exam: PRESENT: RRR. ABSENT: diastolic murmur, rubs, systolic murmur Pulses: PRESENT: normal dorsalis pedis pul Vascular exam: PRESENT: normal capillary refill GI/Abdominal exam: PRESENT: normal bowel sounds, soft. ABSENT: distended, guarding, mass, organolmegaly, rebound, tenderness Rectal exam: PRESENT: deferred Extremities exam: PRESENT: full ROM. ABSENT: calf tenderness, clubbing, pedal edema Musculoskeletal exam: PRESENT: other - Right foot plantar aspect erythema and tenderness no active discharge. Erythema was marked ED and erythema seems like to have been stable since on admission. It is tender to palpation all over however sensation, motor and pulses are intact. Neurological exam: PRESENT: alert, awake, oriented to person, oriented to place , oriented to time, oriented to situation, CN II-XII grossly intact. ABSENT: motor sensory deficit Psychiatric exam: PRESENT: appropriate affect, normal mood. ABSENT: homicidal ideation, suicidal ideation Skin exam: PRESENT: dry, intact, warm. ABSENT: cyanosis, rash Results Laboratory Results: 06/28/18 04:34 06/28/18 04:34 06/28/18 06/28/18 04:34 04:34 WBC 10.4 RBC 4.46 Hgb 14.0 Hct 40.1 MCV 90 MCH 31.4 MCHC 34.9 RDW 13.0 Plt Count 277 Seg Neutrophils % 90.9 H Lymphocytes % 7.6 L Monocytes % 1.1 L Eosinophils % 0.0 Basophils % 0.4 Absolute Neutrophils 9.4 H Absolute Lymphocytes 0.8 Absolute Monocytes 0.1 Absolute Eosinophils 0.0 Absolute Basophils 0.0 Sodium 141.9 Potassium 4.8 Chloride 109 H Carbon Dioxide 21 L Anion Gap 12 BUN 15 Creatinine 0.62 Est GFR ( Amer) > 60 Est GFR (Non-Af Amer) > 60 Glucose 156 H Calcium 9.0 Impressions: Foot X-Ray 06/27/18 00:00 IMPRESSION: NEGATIVE STUDY OF THE RIGHT FOOT. NO RADIOGRAPHIC EVIDENCE OF ACUTE INJURY. Lower Extremity CT 06/27/18 20:33 IMPRESSION: Evidence for inflammation of the plantar surface of the foot, may represent cellulitis but no significant fluid collection. No radiopaque foreign body. Assessment & Plan - Diagnosis (1) Cellulitis of right foot Is this a current diagnosis for this admission?: Yes Plan: CT foot negative for any fluid collection, necrotizing fasciitis or osteomyelitis. She received 1 dose of ceftriaxone and 1 dose of vancomycin. Currently placed on clindamycin IV. Pending or throw evaluation. Continue pain management. Monitor for development of compartment syndrome. (2) Tobacco abuse Is this a current diagnosis for this admission?: Yes Plan: Counseled on quitting. Started on nicotine patch. (3) Tenosynovitis Is this a current diagnosis for this admission?: Yes Plan: Continue current antibiotics. Pending orthopedic evaluation. Monitor for compartment syndrome. Continue pain management.
[2018-06-28] MEDS: HYDROMORPHONE HCL INJ/PF 2 MG/ML AMPULE IV PRN ×2 (17:16→21:31)
--- NOTE | 2018-06-28 18:18 | PDOC CONSULTATION ---
Consultation Consult Date: 06/28/18 Consult reason:: Cellulitis of the right foot. 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 This happened about a week ago. Started developing cellulitis redness and swelling and pain with weightbearing so patient finally went to the ER last night for evaluation. Noted to have cellulitis and was admitted for IV antibiotics. Orthopedic was consulted to rule out any abscess or tenosynovitis. CT scan was performed that did not show any fluid collection. Patient denies any fevers or chills and any numbness or tingling of the foot. Pain is 5 out of 5 with weightbearing and at rest is only about 1 out of 5. Does have pain with palpation. She states she can flex and extend her digits and ankle without any difficulty or pain. Past Medical History GI Medical History: Reports: Other - Interstitial cystitis Psychiatric Medical History: Reports: Depression Past Surgical History Past Surgical History: Reports: Orthopedic Surgery - nose, Other - I&D Social History Lives with: Family Smoking Status: Current Every Day Smoker - 1 pack last 3 days Number of Years Smokin Last Time Smoked: 06/27/2018 Frequency of Alcohol Use: Occasional Hx Recreational Drug Use: No - denies Drugs: None Hx Prescription Drug Abuse: No Family History Family History: Reviewed & Not Pertinent Parental Family History Reviewed: No Children Family History Reviewed: No Sibling(s) Family History Reviewed.: No Medication/Allergy Home Medications: No Home Medications 06/28/18 Allergies/Adverse Reactions: azithromycin Allergy (Verified 09/26/17 18:26) Penicillins Allergy (Verified 09/26/17 18:26) contrast dye Allergy (Uncoded 09/26/17 18:26) Review of Systems Review of Systems: Constitutional: [PRESENT: as per HPI. ABSENT: chills, fever(s), headache(s), weight gain, weight loss] Eyes: [ABSENT: visual disturbances] Ears: [ABSENT: hearing changes] Cardiovascular: [ABSENT: chest pain, dyspnea on exertion, edema, orthropnea, palpitations] Respiratory: [ABSENT: cough, hemoptysis] Gastrointestinal: [ABSENT: abdominal pain, constipation, diarrhea, hematemesis, hematochezia, nausea, vomiting] Genitourinary: [ABSENT: dysuria, hematuria] Musculoskeletal: See HPI Integumentary: Erythema about 2 cm on the plantar medial aspect of the right foot Neurological: [ABSENT: abnormal gait, abnormal speech, confusion, dizziness, focal weakness, syncope] Psychiatric: [ABSENT: anxiety, depression, homicidal ideation, suicidal ideation ] Endocrine: [ABSENT: cold intolerance, heat intolerance, menstrual abnormalities , polydipsia, polyuria] Hematologic/Lymphatic: [ABSENT: easy bleeding, easy bruising, lymphadenopathy] Physical Exam Vital Signs: Temp Pulse Resp BP Pulse Ox 36.9 C 61 16 114/66 100 06/28/18 15:54 06/28/18 15:54 06/28/18 15:54 06/28/18 15:54 06/28/18 15:54 Intake & Output 06/27/18 06/28/18 06/29/18 06:59 06:59 06:59 Intake Total 150 100 Balance 150 100 Weight 67.3 kg General appearance: PRESENT: no acute distress, well-nourished Head exam: PRESENT: atraumatic, normocephalic Adult Front & Back Image: 1 - Patient has a 2 cm erythema with a small puncture wound or bite wound in the center of it. The markings down from last night already shows significant improvement compared to the erythema present. She does have tenderness palpation in the area of concern but no fluctuance. Has mild swelling around the area of concern. I digitalized there is no significant swelling or erythema. Patient has full extension and flexion of all 5 digits and full range of motion of her ankle. Good capillary refill with good dorsalis pedis pulse. Results Laboratory Results: 06/28/18 04:34 06/28/18 04:34 06/28/18 06/28/18 04:34 04:34 WBC 10.4 RBC 4.46 Hgb 14.0 Hct 40.1 MCV 90 MCH 31.4 MCHC 34.9 RDW 13.0 Plt Count 277 Seg Neutrophils % 90.9 H Lymphocytes % 7.6 L Monocytes % 1.1 L Eosinophils % 0.0 Basophils % 0.4 Absolute Neutrophils 9.4 H Absolute Lymphocytes 0.8 Absolute Monocytes 0.1 Absolute Eosinophils 0.0 Absolute Basophils 0.0 Sodium 141.9 Potassium 4.8 Chloride 109 H Carbon Dioxide 21 L Anion Gap 12 BUN 15 Creatinine 0.62 Est GFR ( Amer) > 60 Est GFR (Non-Af Amer) > 60 Glucose 156 H Calcium 9.0 Impressions: Foot X-Ray 06/27/18 00:00 IMPRESSION: NEGATIVE STUDY OF THE RIGHT FOOT. NO RADIOGRAPHIC EVIDENCE OF ACUTE INJURY. Lower Extremity CT 06/27/18 20:33 IMPRESSION: Evidence for inflammation of the plantar surface of the foot, may represent cellulitis but no significant fluid collection. No radiopaque foreign body. Status: Image reviewed by me Assessment & Plan - Diagnosis (1) Cellulitis of right foot Is this a current diagnosis for this admission?: Yes Plan: 33-year-old female 1 week out from bite or a puncture wound of the right foot. Patient does not recall. She is responding to the IV antibiotics for the cellulitis of her right foot. There is no fluctuance noted on exam on CT scan. There is no evidence of any deep infection that would warrant concern for tenosynovitis. In fact tenosynovitis is a diagnosis mostly for the hand and no real diagnosis for the foot. At this point I told the patient only reason for orthopedic intervention is for evacuation of an abscess which I do not think she has at this moment. Recommend IV antibiotics and transition to p.o. antibiotics. Once patient is discharged she can follow-up as a outpatient. Please call me back if she plateaus and develops an abscess. If that is the case I would recommend an MRI.
[2018-06-29] MEDS: CLINDAMYCIN 600 MG/D5W RTU 600 MG/50 ML RTUPB IV SCH ×3 (02:16→18:10)
[2018-06-29] MEDS: HYDROMORPHONE HCL INJ/PF 2 MG/ML AMPULE IV PRN ×4 (05:12→23:18)
[2018-06-29] MEDS: HEPARIN SOD (PORCINE) 5,000 UNIT/ML 1 ML SYRINGE SUBCUT SCH ×3 (05:13→23:19)
[2018-06-29] MEDS: PROMETHAZINE HCL INJ 25 MG/1 ML VIAL IV PRN ×4 (07:23→23:19)
[2018-06-29] MEDS: NICOTINE 14 MG/24 HR PATCH.TD24 TD SCH (10:52)
[2018-06-29] MEDS ORDERED: TETANUS/DIPHTHERIA TOX-ADULT 0.5 ML SYR (>=7YO) IM ONE (14:00)
--- NOTE | 2018-06-29 15:47 | PDOC PROGRESS REPORT ---
Subjective Progress Note for:: 06/29/18 Subjective:: Assumed care today. Ms. Billy is a 33 yr old female with no significant PMH who developed tenderness and swelling on the right sole after sustaining a punctured wound 2 weeks ago. She was admitted for right foot cellulitis. No acute event overnight. Patient appeared comfortably asleep prior to encounter. When she woke up, she complained that she is in severe pain. Cellulitic lesion on the right foot has been marked and does show receding of the erythema on the plantat aspect however there is also a new very minimal redness on the right dorsal aspect that has gone beyond the demarcations from yesterday. No fever or chills. Reason For Visit: RIGHT FOOT CELLULITIS Physical Exam Vital Signs: Temp Pulse Resp BP Pulse Ox 99.1 F 72 16 112/53 L 98 06/29/18 15:19 06/29/18 15:19 06/29/18 15:19 06/29/18 15:19 06/29/18 15:19 Intake & Output 06/28/18 06/29/18 06/30/18 06:59 06:59 06:59 Intake Total 150 1024 574 Output Total 800 Balance 150 224 574 Weight 148 lb 5.938 oz 149 lb 7.574 oz General appearance: PRESENT: no acute distress, well-developed, well-nourished Head exam: PRESENT: atraumatic, normocephalic Eye exam: PRESENT: conjunctiva pink, EOMI, PERRLA. ABSENT: scleral icterus Ear exam: PRESENT: normal external ear exam Mouth exam: PRESENT: moist, tongue midline Neck exam: ABSENT: carotid bruit, JVD, lymphadenopathy, thyromegaly Respiratory exam: PRESENT: clear to auscultation sherrill. ABSENT: rales, rhonchi, wheezes Cardiovascular exam: PRESENT: RRR. ABSENT: diastolic murmur, rubs, systolic murmur Pulses: PRESENT: normal dorsalis pedis pul Vascular exam: PRESENT: normal capillary refill GI/Abdominal exam: PRESENT: normal bowel sounds, soft. ABSENT: distended, guarding, mass, organolmegaly, rebound, tenderness Rectal exam: PRESENT: deferred Musculoskeletal exam: PRESENT: tenderness, other - Cellulitic lesion on the right foot has been marked and does show receding of the erythema on the plantat aspect however there is also a new very minimal redness on the right dorsal aspect that has gone beyond the demarcations from yesterday full peripheral pulses Neurological exam: PRESENT: alert, awake, oriented to person, oriented to place , oriented to time, oriented to situation, CN II-XII grossly intact. ABSENT: motor sensory deficit Results Laboratory Results: 06/28/18 04:34 06/28/18 04:34 06/29/18 11:18 Troponin I < 0.012 Impressions: Foot X-Ray 06/27/18 00:00 IMPRESSION: NEGATIVE STUDY OF THE RIGHT FOOT. NO RADIOGRAPHIC EVIDENCE OF ACUTE INJURY. Lower Extremity CT 06/27/18 20:33 IMPRESSION: Evidence for inflammation of the plantar surface of the foot, may represent cellulitis but no significant fluid collection. No radiopaque foreign body. Assessment & Plan - Diagnosis (1) Cellulitis of right foot Is this a current diagnosis for this admission?: Yes Plan: Patient received a dose of Rocephin and vancomycin upon admission. She was subsequently switched to IV clindamycin. Cellulitic lesion on the right foot has been marked and does show receding of the erythema on the plantat aspect however there is also a new very minimal redness on the right dorsal aspect that has gone beyond the demarcations from yesterday. Will continue IV clindamycin today and reassess lesion tomorrow. CT does not show abscess formation. Appreciate ortho evaluation. - Time Time Spent with patient: 15-24 minutes
[2018-06-29] MEDS ORDERED: BUTALB/ACETAMINOPHEN/CAFFEINE 1 TAB EACH PO ONE (19:00)
--- NOTE | 2018-06-29 19:52 | EKG REPORT ---
SEVERITY:- NORMAL ECG - SINUS RHYTHM : Confirmed by: Candice Cee MD 29-Jun-2018 19:51:40
[2018-06-30] MEDS: CLINDAMYCIN 600 MG/D5W RTU 600 MG/50 ML RTUPB IV SCH (02:12)
[2018-06-30] MEDS: HYDROMORPHONE HCL INJ/PF 2 MG/ML AMPULE IV PRN ×4 (04:28→21:01)
[2018-06-30] MEDS: PROMETHAZINE HCL INJ 25 MG/1 ML VIAL IV PRN ×3 (04:29→15:10)
[2018-06-30] MEDS: HEPARIN SOD (PORCINE) 5,000 UNIT/ML 1 ML SYRINGE SUBCUT SCH ×3 (05:48→21:09)
--- NOTE | 2018-06-30 09:04 | RADIOLOGY REPORT (SQ) ---
EXAM DESCRIPTION: CT HEAD WITHOUT COMPLETED DATE/TIME: 06/30/2018 8:55 am REASON FOR STUDY: head pain COMPARISON: None. TECHNIQUE: Axial images acquired through the brain without intravenous contrast. Images reviewed wi th bone, brain and subdural windows. Additional sagittal and coronal reconstructions were generated. Images stored on PACS. All CT scanners at this facility use dose modulation, iterative reconstruction, and/or weight based d osing when appropriate to reduce radiation dose to as low as reasonably achievable (ALARA). [facility]: Dose Right [facility]: CareDose [facility]: Dose Right [facility]: Teradose 4D [facility]: MEDEM RADIATION DOSE: CT Rad equipment meets quality standard of care and radiation dose reduction techniq ues were employed. CTDIvol: 48.7 mGy. DLP: 930 mGy-cm. mGy. LIMITATIONS: None. FINDINGS: VENTRICLES: Normal size and contour. CEREBRUM: No masses. No hemorrhage. No midline shift. No evidence for acute infarction. Normal gra y/white matter differentiation. No areas of low density in the white matter. CEREBELLUM: No masses. No hemorrhage. No alteration of density. No evidence for acute infarction. EXTRAAXIAL SPACES: No fluid collections. No masses. ORBITS AND GLOBE: No intra- or extraconal masses. Normal contour of globe without masses. CALVARIUM: No fracture. PARANASAL SINUSES: No fluid or mucosal thickening. SOFT TISSUES: No mass or hematoma. OTHER: No other significant finding. IMPRESSION: NORMAL BRAIN CT WITHOUT CONTRAST. EVIDENCE OF ACUTE STROKE: NO. COMMENT: Quality ID # [id number]: Final reports with documentation of one or more dose reduction techniques (e.g., Automated exposure control, adjustment of the mA and/or kV according to patient size, use of iterative reconstruction technique) TECHNICAL DOCUMENTATION: JOB ID: [id number] [employer]- All Rights Reserved Reading location - IP/workstation name: [email or web address]
[2018-06-30 09:30] LABS: ABSOLUTE BASOPHILS # (AUTO) 0.1 10^3/uL (0.0-0.2); ABSOLUTE EOSINOPHILS # (AUTO) 0.1 10^3/uL (0.0-0.6); ABSOLUTE LYMPHOCYTES (AUTO) 2.4 10^3/uL (0.5-4.7); ABSOLUTE MONOCYTES (AUTO) 0.9 10^3/uL (0.1-1.4); ABSOLUTE NEUT (AUTO) 8.2 10^3/uL (1.7-8.2); BASOPHILS % (AUTO) 0.7 % (0-2); HEMATOCRIT 39.7 % (36.0-47.0); HEMOGLOBIN 13.7 g/dL (12.0-15.5); LYMPHOCYTES % (AUTO) 20.6 % (13-45); MEAN CORPUSCULAR HEMOGLOBIN 30.6 pg (27.0-33.4); MEAN CORPUSCULAR HGB CONC 34.5 g/dL (32.0-36.0); MEAN CORPUSCULAR VOLUME 89 fl (80-97); PLATELET COUNT 257 10^3/uL (150-450); RED BLOOD COUNT 4.48 10^6/uL (3.72-5.28); RED CELL DISTRIBUTION WIDTH 13.1 % (11.5-14.0); SEGMENTED NEUTROPHILS % (AUTO) 69.7 % (42-78); TOTAL CELLS COUNTED % (AUTO) 100 %; WHITE BLOOD COUNT 11.7 10^3/uL (4.0-10.5)
[2018-06-30 09:43] LABS: ANION GAP 7 (5-19); BLOOD UREA NITROGEN 14 mg/dL (7-20); CALCIUM 9.1 mg/dL (8.4-10.2); CARBON DIOXIDE 25 mmol/L (22-30); CHLORIDE 103 mmol/L (98-107); GLUCOSE 116 mg/dL (75-110); POTASSIUM 4.3 mmol/L (3.6-5.0); SODIUM 135.3 mmol/L (137-145)
[2018-06-30] MEDS ORDERED: VANCOMYCIN HCL 0 MG in DEXTROSE 5%-WATER 250 ML IV NR (09:45)
[2018-06-30] MEDS: NICOTINE 14 MG/24 HR PATCH.TD24 TD SCH (09:47)
[2018-06-30] MEDS ORDERED: CEFTRIAXONE 1 GM/D5W RTU 1 GM/50 ML RTUPB IV SCH (10:00)
[2018-06-30] MEDS: VANCOMYCIN HCL 1,000 MG in DEXTROSE 5%-WATER 250 ML IV SCH ×2 (11:00→21:09)
[2018-06-30] MEDS: BUTALB/ACETAMINOPHEN/CAFFEINE 1 TAB EACH PO PRN ×2 (11:53→21:02)
--- NOTE | 2018-06-30 13:18 | RADIOLOGY REPORT (SQ) ---
EXAM DESCRIPTION: MRI RT LOWER EXTREMITY WITHOUT COMPLETED DATE/TIME: 06/30/2018 12:53 pm REASON FOR STUDY: right foot cellulitis worsening, r/o abscess COMPARISON: Right foot CT 06/27/2018 Right foot films 06/27/2018 TECHNIQUE: T1-weighted, T2-weighted, and gradient echo noncontrast multiplanar imaging of the right foot. LIMITATIONS: None. FINDINGS: MARROW SIGNAL: No marrow signal alteration. No occult fracture. No evidence for osteo ne crosis. JOINT EFFUSION: No significant effusions. PLANTAR FASCIA: Normal as visualized. TARSOMETATARSAL AND TOE ARTICULATIONS: Anatomic. Mild degenerative changes first metatarsal phalange al joint. INTERMETATARSAL SPACES AND PLANTAR PLATES: Intact. No soft tissue mass to suggest a neuroma. SOFT TISSUES: No masses. No fibrosis. A 2.4 x 1.5 cm area of focal skin thickening is present along the plantar arch of the right foot. There is adjacent edema throughout the plantar subcutaneous fat . On coronal fat-sat T2 series 6, images 20-31, there is edema in the deeper soft tissues of the rig ht forefoot, with edema throughout the plantar aspect of the flexor digitorum brevis muscles. No wel l-circumscribed fluid collection worrisome for abscess. No ferromagnetic artifact from foreign body OTHER: No other significant finding. IMPRESSION: Plantar skin thickening with cellulitis in the skin and plantar subcutaneous fat. Abnormal edema in the flexor digitorum brevis muscles worrisome for myositis. No abscess identified. TECHNICAL DOCUMENTATION: JOB ID: [id number] [employer]- All Rights Reserved Reading location - IP/workstation name: [email or web address]
[2018-06-30] MEDS: CEFTRIAXONE SODIUM 1,000 MG in DEXTROSE 5%-WATER 50 ML IV SCH (15:10)
--- NOTE | 2018-06-30 15:10 | PDOC PROGRESS REPORT ---
Subjective Progress Note for:: 06/30/18 Subjective:: Ms. Billy is a 33 yr old female with no significant PMH who developed tenderness and swelling on the right sole after sustaining a punctured wound 2 weeks ago. She was admitted for right foot cellulitis. No acute event overnight. Patient asleep on bed and was awaken by provider. She does complain the foot pain has worsened today. The erythema does appear to have increased and has gone beyond the demarcations from yesterday. No fever or chills. Reason For Visit: RIGHT FOOT CELLULITIS Physical Exam Vital Signs: Temp Pulse Resp BP Pulse Ox 99.0 F 72 17 110/55 L 97 06/29/18 23:31 06/29/18 23:31 06/29/18 23:31 06/29/18 23:31 06/29/18 23:31 Intake & Output 06/29/18 06/30/18 07/01/18 06:59 06:59 06:59 Intake Total 1024 1514 Output Total 800 2000 Balance 224 -486 Weight 149 lb 7.574 oz 147 lb 11.355 oz 147 lb 11.355 oz General appearance: PRESENT: mild distress - from pain Head exam: PRESENT: atraumatic, normocephalic Eye exam: PRESENT: conjunctiva pink, EOMI, PERRLA. ABSENT: scleral icterus Ear exam: PRESENT: normal external ear exam Mouth exam: PRESENT: moist, tongue midline Neck exam: ABSENT: carotid bruit, JVD, lymphadenopathy, thyromegaly Respiratory exam: PRESENT: clear to auscultation sherrill. ABSENT: rales, rhonchi, wheezes Cardiovascular exam: PRESENT: RRR. ABSENT: diastolic murmur, rubs, systolic murmur Pulses: PRESENT: normal dorsalis pedis pul GI/Abdominal exam: PRESENT: normal bowel sounds, soft. ABSENT: distended, guarding, mass, organolmegaly, rebound, tenderness Rectal exam: PRESENT: deferred Extremities exam: PRESENT: tenderness - tenderness, the erythema does appear to have increased and has gone beyond the demarcations from yesterday, note of a small central pocket of pus Neurological exam: PRESENT: alert, awake, oriented to person, oriented to place , oriented to time, oriented to situation, CN II-XII grossly intact. ABSENT: motor sensory deficit Results Laboratory Results: 06/30/18 09:10 06/30/18 09:10 06/30/18 06/30/18 09:10 09:10 WBC 11.7 H RBC 4.48 Hgb 13.7 Hct 39.7 MCV 89 MCH 30.6 MCHC 34.5 RDW 13.1 Plt Count 257 Seg Neutrophils % 69.7 Lymphocytes % 20.6 Monocytes % 8.0 Eosinophils % 1.0 Basophils % 0.7 Absolute Neutrophils 8.2 Absolute Lymphocytes 2.4 Absolute Monocytes 0.9 Absolute Eosinophils 0.1 Absolute Basophils 0.1 Sodium 135.3 L Potassium 4.3 Chloride 103 Carbon Dioxide 25 Anion Gap 7 BUN 14 Creatinine 0.70 Est GFR ( Amer) > 60 Est GFR (Non-Af Amer) > 60 Glucose 116 H Calcium 9.1 06/29/18 11:18 Troponin I < 0.012 Impressions: Foot X-Ray 06/27/18 00:00 IMPRESSION: NEGATIVE STUDY OF THE RIGHT FOOT. NO RADIOGRAPHIC EVIDENCE OF ACUTE INJURY. Lower Extremity CT 06/27/18 20:33 IMPRESSION: Evidence for inflammation of the plantar surface of the foot, may represent cellulitis but no significant fluid collection. No radiopaque foreign body. Head CT 06/30/18 00:00 IMPRESSION: NORMAL BRAIN CT WITHOUT CONTRAST. EVIDENCE OF ACUTE STROKE: NO. Lower Extremity MRI 06/30/18 00:00 IMPRESSION: Plantar skin thickening with cellulitis in the skin and plantar subcutaneous fat. Abnormal edema in the flexor digitorum brevis muscles worrisome for myositis. No abscess identified. Assessment & Plan - Diagnosis (1) Cellulitis of right foot Is this a current diagnosis for this admission?: Yes Plan: The erythema does appear to have increased and has gone beyond the demarcations from yesterday, note of a small central pocket of pus. Currently on clindamycin. Patient has penicillin allergy (hives). Will switch clindamycin to vancomycin and rocephin for now. Will proceed with MRI. If there is worsening of lesions tomorrow as well as development of fluctuance, will have ortho re- evaluate foot. (2) Headache Is this a current diagnosis for this admission?: Yes Plan: Patient has been having left sided throbbing headache. She does have a history of migraine. Will start Fioricet prn. - Time Time Spent with patient: 15-24 minutes
[2018-06-30] MEDS: ONDANSETRON HCL INJ/PF 4 MG/2 ML SDV IV PRN (21:02)
[2018-06-30] MEDS: TEMAZEPAM 7.5 MG CAPSULE PO PRN (21:18)
[2018-07-01] MEDS: HYDROMORPHONE HCL INJ/PF 2 MG/ML AMPULE IV PRN ×4 (03:20→21:13)
[2018-07-01] MEDS: ONDANSETRON HCL INJ/PF 4 MG/2 ML SDV IV PRN (03:22)
[2018-07-01] MEDS: HEPARIN SOD (PORCINE) 5,000 UNIT/ML 1 ML SYRINGE SUBCUT SCH ×4 (06:14→21:14)
[2018-07-01] MEDS: VANCOMYCIN HCL 1,000 MG in DEXTROSE 5%-WATER 250 ML IV SCH ×2 (09:12→21:14)
[2018-07-01] MEDS: NICOTINE 14 MG/24 HR PATCH.TD24 TD SCH (09:12)
[2018-07-01] MEDS: CEFTRIAXONE SODIUM 1,000 MG in DEXTROSE 5%-WATER 50 ML IV SCH (11:44)
--- NOTE | 2018-07-01 14:48 | PDOC PROGRESS REPORT ---
Subjective Progress Note for:: 07/01/18 Subjective:: Ms. Billy is a 33 yr old female with no significant PMH who developed tenderness and swelling on the right sole after sustaining a punctured wound 2 weeks ago. She was admitted for right foot cellulitis. No acute event overnight. She continues to complain of right foot pain. The erythema is still noted to have spread outside of the markings. The central pocket of pus has slightly increased in size with no open lesion or active drainage. No fever or chills. Will have orthopedics re-evaluate for possible drainage. Reason For Visit: RIGHT FOOT CELLULITIS Physical Exam Vital Signs: Temp Pulse Resp BP Pulse Ox 98.6 F 69 14 105/58 L 98 07/01/18 13:00 07/01/18 13:00 07/01/18 13:00 07/01/18 13:00 07/01/18 13:00 Intake & Output 06/30/18 07/01/18 07/02/18 06:59 06:59 06:59 Intake Total 1514 1544 300 Output Total 2000 1000 Balance -486 544 300 Weight 147 lb 11.355 oz 153 lb 14.122 oz General appearance: PRESENT: no acute distress, well-developed, well-nourished Head exam: PRESENT: atraumatic, normocephalic Eye exam: PRESENT: conjunctiva pink, EOMI, PERRLA. ABSENT: scleral icterus Ear exam: PRESENT: normal external ear exam Mouth exam: PRESENT: moist, tongue midline Neck exam: ABSENT: carotid bruit, JVD, lymphadenopathy, thyromegaly Respiratory exam: PRESENT: clear to auscultation sherrill. ABSENT: rales, rhonchi, wheezes Cardiovascular exam: PRESENT: RRR. ABSENT: diastolic murmur, rubs, systolic murmur Pulses: PRESENT: normal dorsalis pedis pul Vascular exam: PRESENT: normal capillary refill GI/Abdominal exam: PRESENT: normal bowel sounds, soft. ABSENT: distended, guarding, mass, organolmegaly, rebound, tenderness Rectal exam: PRESENT: deferred Extremities exam: PRESENT: other - The erythema is still noted to have spread outside of the markings. The central pocket of pus has slightly increased in size with no open lesion or active drainage. Neurological exam: PRESENT: alert, awake, oriented to person, oriented to place , oriented to time, oriented to situation, CN II-XII grossly intact. ABSENT: motor sensory deficit Results Laboratory Results: 06/30/18 09:10 06/30/18 09:10 06/29/18 11:18 Troponin I < 0.012 Impressions: Foot X-Ray 06/27/18 00:00 IMPRESSION: NEGATIVE STUDY OF THE RIGHT FOOT. NO RADIOGRAPHIC EVIDENCE OF ACUTE INJURY. Lower Extremity CT 06/27/18 20:33 IMPRESSION: Evidence for inflammation of the plantar surface of the foot, may represent cellulitis but no significant fluid collection. No radiopaque foreign body. Head CT 06/30/18 00:00 IMPRESSION: NORMAL BRAIN CT WITHOUT CONTRAST. EVIDENCE OF ACUTE STROKE: NO. Lower Extremity MRI 06/30/18 00:00 IMPRESSION: Plantar skin thickening with cellulitis in the skin and plantar subcutaneous fat. Abnormal edema in the flexor digitorum brevis muscles worrisome for myositis. No abscess identified. Assessment & Plan - Diagnosis (1) Cellulitis of right foot Is this a current diagnosis for this admission?: Yes Plan: MRI from yesterday did not find abscess but the erythema is still noted to have spread outside of the markings. The central pocket of pus appears to have increased from yesterday and is concerning for a beginning abscess. Continue vancomycin and rocephin. Discussed with orthopedics who will reevaluate patient today. (2) Headache Is this a current diagnosis for this admission?: Yes Plan: Resolved. Patient had left sided throbbing headache. She does have a history of migraine. Continue Fioricet prn. - Time Time Spent with patient: 15-24 minutes
[2018-07-01] MEDS ORDERED: FENTANYL CITRATE INJ/PF 100 MCG/2 ML AMPUL ONE (16:17)
[2018-07-01] MEDS ORDERED: ONDANSETRON HCL INJ/PF 4 MG/2 ML SDV ONE (16:17)
[2018-07-01] MEDS ORDERED: DEXAMETHASONE SOD PHOSPHATE INJ 4 MG/1 ML VIAL ONE (16:17)
[2018-07-01] MEDS ORDERED: MIDAZOLAM 2 MG/2 ML INJ ONE (16:17)
[2018-07-01] MEDS ORDERED: MORPHINE SULFATE 10 MG/ML INJ ONE (16:18)
[2018-07-01] MEDS ORDERED: PROPOFOL INJ 200 MG/20 ML VIAL IV ONE (16:18)
[2018-07-01] MEDS ORDERED: BACITRACIN INJ 50,000 UNIT VIAL ONE (16:19)
[2018-07-01] MEDS ORDERED: DIPHENHYDRAMINE HCL 50 MG/ML VIAL IV PRN (16:48)
[2018-07-01] MEDS ORDERED: BUPIVACAINE HCL 0.5 % INJ/PF 30 ML SDV ONE (16:48)
[2018-07-01] MEDS ORDERED: PROMETHAZINE HCL INJ 25 MG/1 ML VIAL IV PRN ×2 (16:48)
[2018-07-01] MEDS ORDERED: MEPERIDINE HCL/PF INJ 25 MG/1 ML DISP.SYRIN IV PRN (16:48)
[2018-07-01] MEDS ORDERED: MORPHINE SULFATE 10 MG/ML INJ IV PRN (16:48)
[2018-07-01] MEDS ORDERED: FENTANYL CITRATE INJ/PF 100 MCG/2 ML AMPUL IV PRN ×3 (16:48)
--- NOTE | 2018-07-01 17:10 | Operative Report ---
Operative Report DATE OF SURGERY: 07/01/18 PREOPERATIVE DIAGNOSIS: Right foot abscess POSTOPERATIVE DIAGNOSIS: Same OPERATION: I&D of right foot abscess SURGEON: SAVANNA GUADARRAMA ANESTHESIA: GA TISSUE REMOVED OR ALTERED: Subcutaneous tissue COMPLICATIONS: None ESTIMATED BLOOD LOSS: Less than 10 mL INTRAOPERATIVE FINDINGS: Small superficial abscess that did not violate the plantar fascia. PROCEDURE: Patient was brought to the operating room and received general anesthetic. A tourniquet was applied to the right lower extremity and the right foot was prepped and draped in a normal sterile surgical fashion. Timeout was done identifying the right foot as the correct site. Esmarch was not used but we did inflate the tourniquet at 300 mmHg after timeout was done. A 15 blade was used to do a 1 cm incision over the superficial area of concern. After cutting the skin I was able to find a pocket of pus. This was successfully drained and retractors were placed. Plantar fascia was visualized and intact. No other pus pocket was noted. The lamination of the epidermis was seen in old skin was removed. Both irrigation was used to irrigate the wound and then a [place] drain was applied. We closed the wound with 3 simple stitches and make sure that the [place] was not captured with the suture. 4 x 4 dressing was applied and then overwrapped with soft roll and then Jay bandage. Tourniquet was let down after 12 minutes. Drapes were removed and then tourniquet was removed. Patient was extubated and sent to PACU in stable condition
[2018-07-01] MEDS ORDERED: KETOROLAC TROMETHAMINE INJ/PF 30 MG/1 ML SDV ONE (17:25)
[2018-07-01] MEDS ORDERED: RINGERS SOLUTION,LACTATED 1,000 ML IV PRN (17:25)
[2018-07-01] MEDS: TEMAZEPAM 7.5 MG CAPSULE PO PRN (23:13)
[2018-07-02] MEDS: HYDROMORPHONE HCL INJ/PF 2 MG/ML AMPULE IV PRN ×4 (03:12→19:56)
[2018-07-02 06:15] LABS: ABSOLUTE BASOPHILS # (AUTO) 0.1 10^3/uL (0.0-0.2); ABSOLUTE LYMPHOCYTES (AUTO) 1.4 10^3/uL (0.5-4.7); ABSOLUTE MONOCYTES (AUTO) 0.8 10^3/uL (0.1-1.4); ABSOLUTE NEUT (AUTO) 11.4 10^3/uL (1.7-8.2); BASOPHILS % (AUTO) 0.6 % (0-2); EOSINOPHILS % (AUTO) 0.1 % (0-6); HEMATOCRIT 39.2 % (36.0-47.0); HEMOGLOBIN 13.5 g/dL (12.0-15.5); LYMPHOCYTES % (AUTO) 10.3 % (13-45); MEAN CORPUSCULAR HEMOGLOBIN 30.7 pg (27.0-33.4); MEAN CORPUSCULAR HGB CONC 34.5 g/dL (32.0-36.0); MEAN CORPUSCULAR VOLUME 89 fl (80-97); PLATELET COUNT 271 10^3/uL (150-450); RED BLOOD COUNT 4.41 10^6/uL (3.72-5.28); RED CELL DISTRIBUTION WIDTH 12.6 % (11.5-14.0); TOTAL CELLS COUNTED % (AUTO) 100 %; WHITE BLOOD COUNT 13.7 10^3/uL (4.0-10.5)
[2018-07-02] MEDS: HEPARIN SOD (PORCINE) 5,000 UNIT/ML 1 ML SYRINGE SUBCUT SCH ×3 (06:19→21:48)
[2018-07-02 06:34] LABS: ANION GAP 8 (5-19); BLOOD UREA NITROGEN 10 mg/dL (7-20); CALCIUM 9.3 mg/dL (8.4-10.2); CARBON DIOXIDE 25 mmol/L (22-30); CHLORIDE 103 mmol/L (98-107); GLUCOSE 99 mg/dL (75-110); POTASSIUM 4.7 mmol/L (3.6-5.0)
[2018-07-02] MEDS: OXYCODONE-ACETAMINOPHEN 5-325 MG TABLET PO PRN (06:46)
[2018-07-02 10:44] LABS: ABSOLUTE LYMPHOCYTES (AUTO) 2.1 10^3/uL (0.5-4.7); ABSOLUTE MONOCYTES (AUTO) 0.9 10^3/uL (0.1-1.4); ABSOLUTE NEUT (AUTO) 11.9 10^3/uL (1.7-8.2); BASOPHILS % (AUTO) 0.3 % (0-2); EOSINOPHILS % (AUTO) 0.3 % (0-6); HEMATOCRIT 38.4 % (36.0-47.0); HEMOGLOBIN 13.3 g/dL (12.0-15.5); MEAN CORPUSCULAR HEMOGLOBIN 30.6 pg (27.0-33.4); MEAN CORPUSCULAR HGB CONC 34.7 g/dL (32.0-36.0); MEAN CORPUSCULAR VOLUME 88 fl (80-97); MONOCYTES % (AUTO) 5.8 % (3-13); PLATELET COUNT 292 10^3/uL (150-450); RED BLOOD COUNT 4.36 10^6/uL (3.72-5.28); RED CELL DISTRIBUTION WIDTH 13.1 % (11.5-14.0); SEGMENTED NEUTROPHILS % (AUTO) 79.6 % (42-78); TOTAL CELLS COUNTED % (AUTO) 100 %
[2018-07-02] MEDS: VANCOMYCIN HCL 1,000 MG in DEXTROSE 5%-WATER 250 ML IV SCH ×2 (10:51→17:05)
[2018-07-02] MEDS: NICOTINE 14 MG/24 HR PATCH.TD24 TD SCH (10:51)
[2018-07-02 11:18] LABS: VANCOMYCIN,TROUGH < 5.0 ug/mL (5.0-20.0)
--- NOTE | 2018-07-02 12:11 | PDOC PROGRESS REPORT ---
Subjective Progress Note for:: 07/02/18 Subjective:: Ms. Billy is a 33 yr old female with no significant PMH who developed tenderness and swelling on the right sole after sustaining a punctured wound 2 weeks ago. She was admitted for right foot cellulitis. Patient underwent drainage of superficial abscess yesterday 07/01/18. No acute event overnight. This morning, patient appears comfortable and says she is feeling much better after the drainage. No fever or chills. Reason For Visit: RIGHT FOOT CELLULITIS Physical Exam Vital Signs: Temp Pulse Resp BP Pulse Ox 98.2 F 71 15 115/52 L 99 07/02/18 09:00 07/02/18 09:00 07/02/18 09:00 07/02/18 09:00 07/02/18 09:00 Intake & Output 07/01/18 07/02/18 07/03/18 06:59 06:59 06:59 Intake Total 1544 1350 Output Total 1000 2510 Balance 544 -1160 Weight 153 lb 14.122 oz 158 lb 11.725 oz General appearance: PRESENT: no acute distress, well-developed, well-nourished Head exam: PRESENT: atraumatic, normocephalic Eye exam: PRESENT: conjunctiva pink, EOMI, PERRLA. ABSENT: scleral icterus Ear exam: PRESENT: normal external ear exam Mouth exam: PRESENT: moist, tongue midline Neck exam: ABSENT: carotid bruit, JVD, lymphadenopathy, thyromegaly Respiratory exam: PRESENT: clear to auscultation sherrill. ABSENT: rales, rhonchi, wheezes Cardiovascular exam: PRESENT: RRR. ABSENT: diastolic murmur, rubs, systolic murmur GI/Abdominal exam: PRESENT: normal bowel sounds, soft. ABSENT: distended, guarding, mass, organolmegaly, rebound, tenderness Rectal exam: PRESENT: deferred Neurological exam: PRESENT: alert, awake, oriented to person, oriented to place , oriented to time, oriented to situation, CN II-XII grossly intact. ABSENT: motor sensory deficit Results Laboratory Results: 07/02/18 09:51 07/02/18 09:51 07/02/18 07/02/18 07/02/18 05:19 05:19 09:51 WBC 13.7 H RBC 4.41 Hgb 13.5 Hct 39.2 MCV 89 MCH 30.7 MCHC 34.5 RDW 12.6 Plt Count 271 Seg Neutrophils % 83.0 H Lymphocytes % 10.3 L Monocytes % 6.0 Eosinophils % 0.1 Basophils % 0.6 Absolute Neutrophils 11.4 H Absolute Lymphocytes 1.4 Absolute Monocytes 0.8 Absolute Eosinophils 0.0 Absolute Basophils 0.1 Sodium 136.0 L Potassium 4.7 Chloride 103 Carbon Dioxide 25 Anion Gap 8 BUN 10 Creatinine 0.55 0.63 Est GFR ( Amer) > 60 > 60 Est GFR (Non-Af Amer) > 60 > 60 Glucose 99 Calcium 9.3 07/02/18 09:51 WBC 15.0 H RBC 4.36 Hgb 13.3 Hct 38.4 MCV 88 MCH 30.6 MCHC 34.7 RDW 13.1 Plt Count 292 Seg Neutrophils % 79.6 H Lymphocytes % 14.0 Monocytes % 5.8 Eosinophils % 0.3 Basophils % 0.3 Absolute Neutrophils 11.9 H Absolute Lymphocytes 2.1 Absolute Monocytes 0.9 Absolute Eosinophils 0.0 Absolute Basophils 0.0 Sodium Potassium Chloride Carbon Dioxide Anion Gap BUN Creatinine Est GFR ( Amer) Est GFR (Non-Af Amer) Glucose Calcium 06/29/18 11:18 Troponin I < 0.012 Impressions: Foot X-Ray 06/27/18 00:00 IMPRESSION: NEGATIVE STUDY OF THE RIGHT FOOT. NO RADIOGRAPHIC EVIDENCE OF ACUTE INJURY. Lower Extremity CT 06/27/18 20:33 IMPRESSION: Evidence for inflammation of the plantar surface of the foot, may represent cellulitis but no significant fluid collection. No radiopaque foreign body. Head CT 06/30/18 00:00 IMPRESSION: NORMAL BRAIN CT WITHOUT CONTRAST. EVIDENCE OF ACUTE STROKE: NO. Lower Extremity MRI 06/30/18 00:00 IMPRESSION: Plantar skin thickening with cellulitis in the skin and plantar subcutaneous fat. Abnormal edema in the flexor digitorum brevis muscles worrisome for myositis. No abscess identified. Assessment & Plan - Diagnosis (1) Abscess Is this a current diagnosis for this admission?: Yes Plan: Patient did develop a superficial abscess on the right foot. She underwent drainage by ortho yesterday 07/01/18. Cultures pending. Contnue vancomycin and rocephin. Patient will likely be discharged tomorrow after cultures are back. (2) Cellulitis of right foot Is this a current diagnosis for this admission?: Yes Plan: Continue vancomycin and rocephin. (3) Headache Is this a current diagnosis for this admission?: Yes Plan: Resolved. Patient had left sided throbbing headache. She does have a history of migraine. Continue Fioricet prn. - Time Time Spent with patient: 15-24 minutes
[2018-07-02] MEDS: CEFTRIAXONE SODIUM 1,000 MG in DEXTROSE 5%-WATER 50 ML IV SCH (12:39)
[2018-07-02] MEDS: BUTALB/ACETAMINOPHEN/CAFFEINE 1 TAB EACH PO PRN (15:44)
--- NOTE | 2018-07-02 16:05 | PDOC PROGRESS REPORT ---
Subjective Progress Note for:: 07/02/18 Subjective:: Patient states her pain is improved after lancing of her superficial abscess. No issues overnight. Ready to go home as soon as possible. Reason For Visit: RIGHT FOOT CELLULITIS Physical Exam Vital Signs: Temp Pulse Resp BP Pulse Ox 36.7 C 61 16 108/54 L 98 07/02/18 13:00 07/02/18 13:00 07/02/18 13:00 07/02/18 13:00 07/02/18 13:00 Intake & Output 07/01/18 07/02/18 07/03/18 06:59 06:59 06:59 Intake Total 1544 1350 1890 Output Total 1000 2510 Balance 544 -1160 1890 Weight 69.8 kg 72 kg General appearance: PRESENT: no acute distress Adult Front & Back Image: 1 - Dressing is still clean dry and intact. No drainage. Mild soreness on palpation over the dressing but no exquisite pain. She has good capillary refill with extension and flexion of her digits without issues. Results Laboratory Results: 07/02/18 09:51 07/02/18 09:51 07/02/18 07/02/18 07/02/18 05:19 05:19 09:51 WBC 13.7 H RBC 4.41 Hgb 13.5 Hct 39.2 MCV 89 MCH 30.7 MCHC 34.5 RDW 12.6 Plt Count 271 Seg Neutrophils % 83.0 H Lymphocytes % 10.3 L Monocytes % 6.0 Eosinophils % 0.1 Basophils % 0.6 Absolute Neutrophils 11.4 H Absolute Lymphocytes 1.4 Absolute Monocytes 0.8 Absolute Eosinophils 0.0 Absolute Basophils 0.1 Sodium 136.0 L Potassium 4.7 Chloride 103 Carbon Dioxide 25 Anion Gap 8 BUN 10 Creatinine 0.55 0.63 Est GFR ( Amer) > 60 > 60 Est GFR (Non-Af Amer) > 60 > 60 Glucose 99 Calcium 9.3 07/02/18 09:51 WBC 15.0 H RBC 4.36 Hgb 13.3 Hct 38.4 MCV 88 MCH 30.6 MCHC 34.7 RDW 13.1 Plt Count 292 Seg Neutrophils % 79.6 H Lymphocytes % 14.0 Monocytes % 5.8 Eosinophils % 0.3 Basophils % 0.3 Absolute Neutrophils 11.9 H Absolute Lymphocytes 2.1 Absolute Monocytes 0.9 Absolute Eosinophils 0.0 Absolute Basophils 0.0 Sodium Potassium Chloride Carbon Dioxide Anion Gap BUN Creatinine Est GFR ( Amer) Est GFR (Non-Af Amer) Glucose Calcium 06/29/18 11:18 Troponin I < 0.012 Impressions: Foot X-Ray 06/27/18 00:00 IMPRESSION: NEGATIVE STUDY OF THE RIGHT FOOT. NO RADIOGRAPHIC EVIDENCE OF ACUTE INJURY. Lower Extremity CT 06/27/18 20:33 IMPRESSION: Evidence for inflammation of the plantar surface of the foot, may represent cellulitis but no significant fluid collection. No radiopaque foreign body. Head CT 06/30/18 00:00 IMPRESSION: NORMAL BRAIN CT WITHOUT CONTRAST. EVIDENCE OF ACUTE STROKE: NO. Lower Extremity MRI 06/30/18 00:00 IMPRESSION: Plantar skin thickening with cellulitis in the skin and plantar subcutaneous fat. Abnormal edema in the flexor digitorum brevis muscles worrisome for myositis. No abscess identified. Assessment & Plan - Diagnosis (1) Cellulitis of right foot Is this a current diagnosis for this admission?: Yes Plan: Patient is postop day 1 from I&D of the superficial right foot abscess on the plantar aspect. Cultures came back as gram-positive cocci. Continue IV antibiotics. We will change her dressing tomorrow. She knows she needs to wean off of the IV narcotics and only take the p.o. narcotics before going home.
[2018-07-02] MEDS: TEMAZEPAM 7.5 MG CAPSULE PO PRN (23:01)
[2018-07-03] MEDS: HYDROMORPHONE HCL INJ/PF 2 MG/ML AMPULE IV PRN (01:01)
[2018-07-03] MEDS: VANCOMYCIN HCL 1,000 MG in DEXTROSE 5%-WATER 250 ML IV SCH ×2 (03:05→12:31)
[2018-07-03 05:24] LABS: ABSOLUTE BASOPHILS # (AUTO) 0.1 10^3/uL (0.0-0.2); ABSOLUTE EOSINOPHILS # (AUTO) 0.3 10^3/uL (0.0-0.6); ABSOLUTE MONOCYTES (AUTO) 0.6 10^3/uL (0.1-1.4); ABSOLUTE NEUT (AUTO) 5.5 10^3/uL (1.7-8.2); EOSINOPHILS % (AUTO) 2.7 % (0-6); HEMATOCRIT 37.5 % (36.0-47.0); HEMOGLOBIN 12.8 g/dL (12.0-15.5); LYMPHOCYTES % (AUTO) 31.2 % (13-45); MEAN CORPUSCULAR HEMOGLOBIN 30.6 pg (27.0-33.4); MEAN CORPUSCULAR HGB CONC 34.1 g/dL (32.0-36.0); MEAN CORPUSCULAR VOLUME 90 fl (80-97); MONOCYTES % (AUTO) 6.6 % (3-13); PLATELET COUNT 264 10^3/uL (150-450); RED BLOOD COUNT 4.18 10^6/uL (3.72-5.28); SEGMENTED NEUTROPHILS % (AUTO) 58.5 % (42-78); TOTAL CELLS COUNTED % (AUTO) 100 %; WHITE BLOOD COUNT 9.5 10^3/uL (4.0-10.5)
[2018-07-03 05:42] LABS: ANION GAP 6 (5-19); BLOOD UREA NITROGEN 8 mg/dL (7-20); CALCIUM 8.7 mg/dL (8.4-10.2); CARBON DIOXIDE 25 mmol/L (22-30); CHLORIDE 107 mmol/L (98-107); GLUCOSE 116 mg/dL (75-110); POTASSIUM 4.2 mmol/L (3.6-5.0); SODIUM 137.6 mmol/L (137-145)
[2018-07-03] MEDS: HEPARIN SOD (PORCINE) 5,000 UNIT/ML 1 ML SYRINGE SUBCUT SCH ×2 (06:12→13:14)
[2018-07-03] MEDS: OXYCODONE-ACETAMINOPHEN 5-325 MG TABLET PO PRN ×2 (08:25→14:39)
[2018-07-03] MEDS: NICOTINE 14 MG/24 HR PATCH.TD24 TD SCH (10:03)
[2018-07-03 10:36] LABS: VANCOMYCIN,TROUGH 14.9 ug/mL (5.0-20.0)
--- NOTE | 2018-07-03 11:38 | PDOC PROGRESS REPORT ---
Subjective Progress Note for:: 07/03/18 Subjective:: Patient had no issues overnight. Dressing was changed but the Miya was left in. States her pain is still present but improved since the I&D. Reason For Visit: RIGHT FOOT CELLULITIS Physical Exam Vital Signs: Temp Pulse Resp BP Pulse Ox 36.4 C 67 18 110/73 97 07/03/18 08:00 07/03/18 08:00 07/03/18 08:00 07/03/18 08:00 07/03/18 08:16 Intake & Output 07/02/18 07/03/18 07/04/18 06:59 06:59 06:59 Intake Total 1350 2990 237 Output Total 2510 1300 0 Balance -1160 1690 237 Weight 72 kg 73 kg Adult Front & Back Image: 1 - Dressing was removed and the Wheat[place] was also removed. Drainage is mostly serous in the. No purulent drainage. The erythema has improved about 90% from where it was prior to the drainage of the superficial abscess. Neurovascular intact distally. Results Laboratory Results: 07/03/18 05:02 07/03/18 05:02 07/03/18 07/03/18 05:02 05:02 WBC 9.5 RBC 4.18 Hgb 12.8 Hct 37.5 MCV 90 MCH 30.6 MCHC 34.1 RDW 13.0 Plt Count 264 Seg Neutrophils % 58.5 Lymphocytes % 31.2 Monocytes % 6.6 Eosinophils % 2.7 Basophils % 1.0 Absolute Neutrophils 5.5 Absolute Lymphocytes 3.0 Absolute Monocytes 0.6 Absolute Eosinophils 0.3 Absolute Basophils 0.1 Sodium 137.6 Potassium 4.2 Chloride 107 Carbon Dioxide 25 Anion Gap 6 BUN 8 Creatinine 0.54 Est GFR ( Amer) > 60 Est GFR (Non-Af Amer) > 60 Glucose 116 H Calcium 8.7 06/29/18 11:18 Troponin I < 0.012 Impressions: Foot X-Ray 06/27/18 00:00 IMPRESSION: NEGATIVE STUDY OF THE RIGHT FOOT. NO RADIOGRAPHIC EVIDENCE OF ACUTE INJURY. Lower Extremity CT 06/27/18 20:33 IMPRESSION: Evidence for inflammation of the plantar surface of the foot, may represent cellulitis but no significant fluid collection. No radiopaque foreign body. Head CT 06/30/18 00:00 IMPRESSION: NORMAL BRAIN CT WITHOUT CONTRAST. EVIDENCE OF ACUTE STROKE: NO. Lower Extremity MRI 06/30/18 00:00 IMPRESSION: Plantar skin thickening with cellulitis in the skin and plantar subcutaneous fat. Abnormal edema in the flexor digitorum brevis muscles worrisome for myositis. No abscess identified. Status: Image reviewed by me Assessment & Plan - Diagnosis (1) Cellulitis of right foot Is this a current diagnosis for this admission?: Yes (2) Abscess Is this a current diagnosis for this admission?: Yes Plan: 33-year-old female status post incision and drainage of right foot plantar abscess. Abscess was superficial. White count is decreased to 9.5. Her pain has decreased as well. Wheatland was removed and sutures clean dry intact with just bloody drainage. Erythema is significantly decreased. At this point recommend patient being discharged on p.o. antibiotics. Follow- up in 10 days for wound check and suture removal.
[2018-07-03] MEDS: CEFTRIAXONE SODIUM 1,000 MG in DEXTROSE 5%-WATER 50 ML IV SCH (12:31)
[2018-07-03 15:01] VITALS: BP 110/56
--- NOTE | 2018-07-03 17:42 | PDOC DISCHARGE SUMMARY ---
General - Admit/Disc Date/PCP Admission Date/Primary Care Provider: 06/27/18 23:09 Discharge Date: 07/03/18 - Discharge Diagnosis (1) Abscess Is this a current diagnosis for this admission?: Yes (2) Cellulitis of right foot Is this a current diagnosis for this admission?: Yes (3) Headache Is this a current diagnosis for this admission?: Yes - Additional Information Resuscitation Status: Full Code Discharge Diet: As Tolerated Prescriptions: Acetaminophen [Tylenol] 650 mg PO Q6H PRN #20 tablet PRN Reason: Sulfamethoxazole/Trimethoprim [Bactrim Ds Tablet] 1 each PO BID 10 Days #20 tablet Tramadol HCl 50 mg PO Q8H #12 tablet Home Medications: Acetaminophen [Tylenol] 650 mg PO Q6H PRN #20 tablet 07/03/18 Sulfamethoxazole/Trimethoprim [Bactrim Ds Tablet] 1 each PO BID 10 Days #20 tablet 07/03/18 Tramadol HCl 50 mg PO Q8H #12 tablet 07/03/18 History of Present Illness History of Present Illness: JULIET BILLY is a 33 year old female who comes to the emergency department for right foot pain. Patient tells me she is stepped into something 2 weeks ago with puncture in the right plantar area, she does not know what was on the floor but initially she noted erythema on on the site of puncture, 2-3 days ago that has been getting worse with increased erythema extending to the leg, swelling, excruciating pain on the plantar area, patient walks on tiptoes but the pain has been intolerable and she decided to come to the emergency department. Do not see any physician and was not on any antibiotic. Has been feeling cold last night but denies any fever or chills, has been nauseous but no vomiting. CT of the right foot shows inflammation in the plantar surface with mild thickening skin, negative for fluid collection or foreign body. Hospital Course Hospital Course: Ms. Billy is a 33 yr old female with no significant PMH who developed tenderness and swelling on the right sole after sustaining a punctured wound 2 weeks ago. She was admitted for right foot cellulitis. She was started on board spectrum IV antibiotics but she developed a small superficial abscess. Patient underwent drainage of superficial abscess by ortho on 07/01/18. She did clinically improve. Miya drain was removed by ortho and her dressings were also changed. Her wound culture came back positive for MRSA sensitive to Bactrim. She will follow up with ortho for re-evaluation of wound. She will be sent home on Bactrim. Physical Exam Vital Signs: Temp Pulse Resp BP Pulse Ox 97.6 F 67 18 110/56 L 97 07/03/18 14:57 07/03/18 14:57 07/03/18 14:57 07/03/18 14:57 07/03/18 14:57 Intake & Output 07/02/18 07/03/18 07/04/18 06:59 06:59 06:59 Intake Total 1350 2990 892 Output Total 2510 1300 0 Balance -1160 1690 892 Weight 158 lb 11.725 oz 160 lb 14.999 oz General appearance: PRESENT: no acute distress, well-developed, well-nourished Head exam: PRESENT: atraumatic, normocephalic Eye exam: PRESENT: conjunctiva pink, EOMI, PERRLA. ABSENT: scleral icterus Ear exam: PRESENT: normal external ear exam Mouth exam: PRESENT: moist, tongue midline Neck exam: ABSENT: carotid bruit, JVD, lymphadenopathy, thyromegaly Respiratory exam: PRESENT: clear to auscultation sherrill. ABSENT: rales, rhonchi, wheezes Cardiovascular exam: PRESENT: RRR. ABSENT: diastolic murmur, rubs, systolic murmur Pulses: PRESENT: normal dorsalis pedis pul GI/Abdominal exam: PRESENT: normal bowel sounds, soft. ABSENT: distended, guarding, mass, organolmegaly, rebound, tenderness Musculoskeletal exam: PRESENT: other - note of drained wound on right sole with sutures and Sherwood drain in place, very minimal erythema with no significant tenderness around the wound site Neurological exam: PRESENT: alert, awake, oriented to person, oriented to place , oriented to time, oriented to situation, CN II-XII grossly intact. ABSENT: motor sensory deficit Results Laboratory Results: 07/03/18 05:02 07/03/18 05:02 07/03/18 07/03/18 05:02 05:02 WBC 9.5 RBC 4.18 Hgb 12.8 Hct 37.5 MCV 90 MCH 30.6 MCHC 34.1 RDW 13.0 Plt Count 264 Seg Neutrophils % 58.5 Lymphocytes % 31.2 Monocytes % 6.6 Eosinophils % 2.7 Basophils % 1.0 Absolute Neutrophils 5.5 Absolute Lymphocytes 3.0 Absolute Monocytes 0.6 Absolute Eosinophils 0.3 Absolute Basophils 0.1 Sodium 137.6 Potassium 4.2 Chloride 107 Carbon Dioxide 25 Anion Gap 6 BUN 8 Creatinine 0.54 Est GFR ( Amer) > 60 Est GFR (Non-Af Amer) > 60 Glucose 116 H Calcium 8.7 06/29/18 11:18 Troponin I < 0.012 Impressions: Foot X-Ray 06/27/18 00:00 IMPRESSION: NEGATIVE STUDY OF THE RIGHT FOOT. NO RADIOGRAPHIC EVIDENCE OF ACUTE INJURY. Lower Extremity CT 06/27/18 20:33 IMPRESSION: Evidence for inflammation of the plantar surface of the foot, may represent cellulitis but no significant fluid collection. No radiopaque foreign body. Head CT 06/30/18 00:00 IMPRESSION: NORMAL BRAIN CT WITHOUT CONTRAST. EVIDENCE OF ACUTE STROKE: NO. Lower Extremity MRI 06/30/18 00:00 IMPRESSION: Plantar skin thickening with cellulitis in the skin and plantar subcutaneous fat. Abnormal edema in the flexor digitorum brevis muscles worrisome for myositis. No abscess identified. Qualifiers - * PATIENT BEING DISCHARGED WITH ANY OF THE FOLLOWING DIAGNOSIS: No
== END 2018-07-03 15:45 | disposition home or self-care (01) | DRG 603 ==
LOC: ER 16:51 → EH 23:09 → 4N 06-28 00:15
PROVIDERS: ADMIT Internal Medicine; ATTEND Internal Medicine
PROC: 0J9Q30Z Drainage of Right Foot Subcutaneous Tissue and Fascia with Drainage Device, Percutaneous Approach (ICD-10-PCS; principal; 2018-07-01 17:30)
DX: L03.115 Cellulitis of right lower limb (principal); L02.611 Cutaneous abscess of right foot; B95.62 Methicillin resistant Staphylococcus aureus infection as the cause of diseases classified elsewhere; R51 Headache; W22.09XA Striking against other stationary object, initial encounter; F32.9 Major depressive disorder, single episode, unspecified; F17.210 Nicotine dependence, cigarettes, uncomplicated; M65.9 Synovitis and tenosynovitis, unspecified; Z88.3 Allergy status to other anti-infective agents; Z88.0 Allergy status to penicillin; Z91.041 Radiographic dye allergy status; Z82.49 Family history of ischemic heart disease and other diseases of the circulatory system
CPT/HCPCS: 00400; 36415; 70450; 80048; 80053; 80202; 81001; 81025; 82565; 83605; 84484; 85025; 85610; 85730; 87040; 87070; 87075; 87077; 87186; 87205; 93005; 93010; 96361; 96365; 96375; 99285; J0696; J1100; J1170; J1200; J1644; J1885; J2250; J2270; J2405; J2550; J2704; J2930; J3010; J3370; J3490; J7030; J7060; J7120; S0028

== ENCOUNTER 2018-10-31 16:16 | Emergency (ER) | payer OTHER, MEDICAID ==
[2018-10-31 16:25] VITALS: BP 138/71
[2018-10-31] MEDS ORDERED: KETOROLAC TROMETHAMINE INJ/PF 30 MG/1 ML SDV IM ONE (17:19)
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
== END 2018-10-31 17:20 | disposition home or self-care (01) ==
LOC: ER 16:16
DX: M54.2 Cervicalgia (principal); M54.6 Pain in thoracic spine; V49.40XA Driver injured in collision with unspecified motor vehicles in traffic accident, initial encounter
CPT/HCPCS: 99283; J1885

== ENCOUNTER 2019-01-04 15:17 | Emergency (ER) | payer MEDICAID, OTHER ==
[2019-01-04] MEDS ORDERED: CEFTRIAXONE INJ 1000 MG VIAL IM ONE (16:25)
[2019-01-04] MEDS ORDERED: LIDOCAINE 1% INJ-PF (10 MG/ML) 30 ML SDV INJ ONE (16:25)
[2019-01-04] MEDS ORDERED: KETOROLAC TROMETHAMINE 60 MG/2 ML SDV IM ONE (16:25)
--- NOTE | 2019-01-04 16:27 | ER Document Report ---
ED Medical Screen (RME) - General Chief Complaint: Abdominal Pain Stated Complaint: ABDOMINAL PAIN Time Seen by Provider: 01/04/19 16:10 Primary Care Provider: DARWIN BOOGIE MD [COMMUNITY BASED STAFF] - Follow up in 3-5 days Mode of Arrival: Ambulatory Information source: Patient TRAVEL OUTSIDE OF THE [place] IN LAST 30 DAYS: No - HPI Notes: 01/04/19 17:54 33 yr old female presents today with complaints of a cellulitis on her abdomen that she noticed yesterday, she has a hx of mrsa. she was nervous because she had a hx of mrsa in the fall on her foot which caused her to be admitted. pt states she wanted to catch this this infection. eating/drinking without issues. patient reports her pain is 5/10, achy. states she has some nausea. Denies fevers, chills, chest pain,palpitations, shortness of breath, dyspnea, vomiting, diarrhea, abdominal pain, hematuria,blurred vision, double vision, loss of vision, speech changes, LH, dizziness, syncope, headaches, wheezing, ST, URI, neck pain, weakness, bowel or bladder dysfunction, saddle anesthesia, numbness or tingling in bilateral upper or lower extremities equally, muscle paralysis, weakness in bilateral upper or lower extremities equally or rash. - Related Data Allergies/Adverse Reactions: azithromycin Allergy (Verified 01/04/19 15:23) Penicillins Allergy (Verified 01/04/19 15:23) contrast dye Allergy (Uncoded 01/04/19 15:23) Past Medical History - General Information source: Patient - Social History Frequency of alcohol use: None Drug Abuse: None Renal/ Medical History: Denies: Hx Peritoneal Dialysis Psychiatric Medical History: Reports: Hx Depression Past Surgical History: Reports: Hx Gynecologic Surgery - DNC and , Hx Orthopedic Surgery - nose, Other - I&D Review of Systems - Review of Systems Constitutional: No symptoms reported EENT: No symptoms reported Cardiovascular: No symptoms reported Respiratory: No symptoms reported Gastrointestinal: No symptoms reported Genitourinary: No symptoms reported Female Genitourinary: No symptoms reported Musculoskeletal: No symptoms reported Skin: See HPI Hematologic/Lymphatic: No symptoms reported Neurological/Psychological: No symptoms reported Physical Exam - Vital signs Vitals: Temp Pulse Resp BP Pulse Ox 99.0 F 80 20 137/73 H 97 01/04/19 15:33 01/04/19 15:33 01/04/19 15:33 01/04/19 15:33 01/04/19 15:33 Course - Vital Signs Vital signs: Temp Pulse Resp BP Pulse Ox 98.8 F 81 16 128/69 H 98 01/04/19 17:42 01/04/19 17:42 01/04/19 17:42 01/04/19 17:42 01/04/19 17:42 Doctor's Discharge - Discharge Clinical Impression: Cellulitis, History of MRSA infection Condition: Stable Disposition: HOME, SELF-CARE Instructions: Cellulitis ([facility]), MRSA Cellulitis ([facility]) Additional Instructions: Cellulitis You have an infection of your skin and underlying soft tissues called cellulitis. This is due to bacteria, which can enter through any break in the skin, or even through an irritated hair follicle. Untreated, cellulitis will usually worsen. Antibiotics are required. Usually, warm packs or warm soaks, and elevation of the infected area are recommended. You should start getting better within 24 to 36 hours. Most infections respond quickly to the right medication. Follow-up care is important, however, to check for abscess (boil) formation, unsuspected foreign body, or resistant infection. If you develop fever, chills, or if the area of infection is becoming rapidly more swollen or painful, call the doctor at once. The rash is likely due to infection of your skin. You need to take the antibiotics as prescribed. Do not stop even if the rash goes away until you have completed all the antibiotics. The area of redness was traced out here in the emergency department with a marking pen. You need to return to emergency department if the redness spreads outside of this area by more than 2 cm in any direction. You should also return if you develop fevers with temperature greater than 101, persistent vomiting, worsening pain, or have any other symptoms that are concerning to you Return immediately for any new or worsening symptoms. Follow up with primary care provider, call tomorrow to make followup appointment. Prescriptions: Clindamycin HCl 300 mg PO Q6H #28 capsule Forms: Return to Work Referrals: DARWIN BOOGIE MD [COMMUNITY BASED STAFF] - Follow up in 3-5 days
--- NOTE | 2019-01-04 16:32 | ER Document Report ---
ED General - General Chief Complaint: Abdominal Pain Stated Complaint: ABDOMINAL PAIN Time Seen by Provider: 01/04/19 16:10 Mode of Arrival: Ambulatory Information source: Patient TRAVEL OUTSIDE OF THE [place] IN LAST 30 DAYS: No - HPI Onset: Yesterday Onset/Duration: Sudden Quality of pain: Throbbing Severity: Moderate Pain Level: 3 Associated symptoms: Nausea Exacerbated by: Movement Relieved by: Denies Similar symptoms previously: No Recently seen / treated by doctor: No Notes: History of MRSA. - Related Data Allergies/Adverse Reactions: azithromycin Allergy (Verified 01/04/19 15:23) Penicillins Allergy (Verified 01/04/19 15:23) contrast dye Allergy (Uncoded 01/04/19 15:23) Past Medical History - General Information source: Patient - Social History Smoking Status: Current Some Day Smoker Frequency of alcohol use: None Drug Abuse: None Family History: Reviewed & Not Pertinent Patient has suicidal ideation: No Patient has homicidal ideation: No Renal/ Medical History: Denies: Hx Peritoneal Dialysis Psychiatric Medical History: Reports: Hx Depression Past Surgical History: Reports: Hx Gynecologic Surgery - DNC and , Hx Orthopedic Surgery - nose, Other - I&D Review of Systems - Review of Systems Constitutional: No symptoms reported EENT: No symptoms reported Cardiovascular: No symptoms reported Respiratory: No symptoms reported Gastrointestinal: No symptoms reported Genitourinary: No symptoms reported Female Genitourinary: No symptoms reported Musculoskeletal: No symptoms reported Skin: See HPI Hematologic/Lymphatic: No symptoms reported Neurological/Psychological: No symptoms reported Physical Exam - Vital signs Vitals: Temp Pulse Resp BP Pulse Ox 99.0 F 80 20 137/73 H 97 01/04/19 15:33 01/04/19 15:33 01/04/19 15:33 01/04/19 15:33 01/04/19 15:33 - Notes Notes: PHYSICAL EXAMINATION: GENERAL: Well-appearing, well-nourished and in no acute distress. HEAD: Atraumatic, normocephalic. EYES: Pupils equal round and reactive to light, extraocular movements intact, conjunctiva are normal. ENT: Nares patent, oropharynx clear without exudates. Moist mucous membranes. NECK: Normal range of motion, supple without lymphadenopathy LUNGS: Breath sounds clear to auscultation bilaterally and equal. No wheezes rales or rhonchi. HEART: Regular rate and rhythm without murmurs ABDOMEN: Soft, nontender, nondistended abdomen. No guarding, no rebound. No masses appreciated. Female : deferred Musculoskeletal: Normal range of motion, no pitting or edema. No cyanosis. NEUROLOGICAL: Cranial nerves grossly intact. Normal speech, normal gait. Normal sensory, motor exams PSYCH: Normal mood, normal affect. SKIN: Warm, Dry, normal turgor, no rashes or lesions noted. Left lower abdomen with approximately 2 cm x 2 cm area of erythema, induration with slight warmth to touch, no surrounding erythema or phlebitis, no streaking. No surrounding lymphadenopathy. No fluctuance to site. No surrounding satellite lesions, burning or open wounds. Course - Re-evaluation Re-evalutation: 01/04/19 16:31 33-year-old female vitals stable no distress afebrile presents for evaluation of the beginning for cellulitis to her left lower abdomen, noticed approximately a day ago. Patient was nervous because she was recently diagnosed with MRSA when she had an abscess to her foot and was admitted to the hospital. Has not tried any [id number] medications. Last menstrual period was 2 weeks ago. Has not tried any heat to area. Reports pain is 6 out of 10, throbbing achy. Discussed with patient we will start her on clindamycin to cover for MRSA patient given Toradol and Rocephin shot while present to start antibiotic therapy. Area marked with a permanent marker, advised to return to the emergency room if she experiences any redness, swelling or pain outside marked area approximately 1 cm. After performing a Medical Screening Examination, I estimate there is LOW risk for any life threatening rash. At this time the patient looks extremely well and there are no signs of systemic infection, however this may change at any time and the rash may change. I have reevaluated this patient multiple times and no significant life threatening changes are noted. The patient and I have discussed the diagnosis and risks, and we agree with discharging home with close follow-up with the understanding that symptoms and presentations can change. We also discussed returning to the Emergency Department immediately if new or worsening symptoms occur. We have discussed the symptoms which are most concerning (e.g., changing or worsening pain, fever, numbness, weakness, cool or painful digits) that necessitate immediate return. - Vital Signs Vital signs: Temp Pulse Resp BP Pulse Ox 99.0 F 80 20 137/73 H 97 01/04/19 15:33 01/04/19 15:33 01/04/19 15:33 01/04/19 15:33 01/04/19 15:33 Discharge - Discharge Clinical Impression: Cellulitis, History of MRSA infection Condition: Stable Disposition: HOME, SELF-CARE Instructions: MRSA Cellulitis ([facility]), Cellulitis ([facility]) Additional Instructions: Cellulitis You have an infection of your skin and underlying soft tissues called cellulitis. This is due to bacteria, which can enter through any break in the skin, or even through an irritated hair follicle. Untreated, cellulitis will usually worsen. Antibiotics are required. Usually, warm packs or warm soaks, and elevation of the infected area are recommended. You should start getting better within 24 to 36 hours. Most infections respond quickly to the right medication. Follow-up care is important, however, to check for abscess (boil) formation, unsuspected foreign body, or resistant infection. If you develop fever, chills, or if the area of infection is becoming rapidly more swollen or painful, call the doctor at once. The rash is likely due to infection of your skin. You need to take the antibiotics as prescribed. Do not stop even if the rash goes away until you have completed all the antibiotics. The area of redness was traced out here in the emergency department with a marking pen. You need to return to emergency department if the redness spreads outside of this area by more than 2 cm in any direction. You should also return if you develop fevers with temperature greater than 101, persistent vomiting, worsening pain, or have any other symptoms that are concerning to you Return immediately for any new or worsening symptoms. Follow up with primary care provider, call tomorrow to make followup appointment. Prescriptions: Clindamycin HCl 300 mg PO Q6H #28 capsule Forms: Return to Work Referrals: DARWIN BOOGIE MD [COMMUNITY BASED STAFF] - Follow up in 3-5 days
[2019-01-04 17:45] VITALS: BP 128/69
== END 2019-01-04 17:43 | disposition home or self-care (01) ==
LOC: ER 15:17
DX: L03.311 Cellulitis of abdominal wall (principal); R10.9 Unspecified abdominal pain; R11.0 Nausea; F17.200 Nicotine dependence, unspecified, uncomplicated; Z88.0 Allergy status to penicillin; Z91.041 Radiographic dye allergy status; Z88.1 Allergy status to other antibiotic agents
CPT/HCPCS: 99283; 96372; J1885; J3490; J0696

== ENCOUNTER 2019-05-29 19:47 | Emergency (ER) | payer SELFPAY ==
[2019-05-29 20:02] VITALS: BP 129/75
== END 2019-05-29 22:55 | disposition left against medical advice (07) ==
LOC: ER 19:47
DX: Z53.21 Procedure and treatment not carried out due to patient leaving prior to being seen by health care provider (principal)

== ENCOUNTER 2020-02-20 16:04 | Emergency (ER) | payer SELFPAY ==
[2020-02-20 16:31] VITALS: BP 133/72
--- NOTE | 2020-02-20 16:39 | ER Document Report ---
ED General - General Chief Complaint: Sinus Pain Stated Complaint: FACE PAIN/FACE NUMBNESS Time Seen by Provider: 02/20/20 16:09 Primary Care Provider: [facility] [Provider Group] - Follow up as needed Notes: 34-year-old female presents with pain in her right naris left naris radiating to the right maxillary and forehead onset about a week ago. She thinks her nares is swollen. There is no drainage. She keeps putting a Q-tip up her nose "to get the boogers out" denies discharge. No facial change no headache no fevers although is chilly. No history of herpes. History of interstitial cystitis. No history of migraines. She has not seen a primary care. She denies photophobia neck stiffness and neck pain. TRAVEL OUTSIDE OF THE [place] IN LAST 30 DAYS: No - Related Data Allergies/Adverse Reactions: azithromycin Allergy (Verified 01/04/19 15:23) Penicillins Allergy (Verified 01/04/19 15:23) contrast dye Allergy (Uncoded 01/04/19 15:23) Past Medical History - General Information source: Patient - Social History Smoking Status: Current Every Day Smoker Frequency of alcohol use: None Drug Abuse: None Family History: Reviewed & Not Pertinent Patient has homicidal ideation: No Renal/ Medical History: Denies: Hx Peritoneal Dialysis Psychiatric Medical History: Reports: Hx Depression Past Surgical History: Reports: Hx Gynecologic Surgery, Hx Orthopedic Surgery - nose, Other - I&D Review of Systems - Review of Systems Notes: REVIEW OF SYSTEMS GEN: Denies fever, chills, weight loss ENT: See HPI EYES: Denies blurry vision, eye pain, discharge CV: Denies chest pain, palpitations, edema RESP: Denies cough, shortness of breath, wheezing GI: Denies abdominal pain, nausea, vomiting, diarrhea MSK: Denies joint pain/swelling, edema, SKIN: Denies rash, skin lesions LYMPH: Denies swollen glands/lymph nodes NEURO: Denies headache, focal weakness or numbness, dizziness PSYCH: Denies depression, suicidal or homicidal ideation PHYSICAL EXAMINATION General: No acute distress, well-nourished Head: Atraumatic, normocephalic ENT: Mouth normal, oropharynx moist, no exudates or tonsillar enlargement. Tenderness in the right maxillary and frontal sinus area without appreciable facial swelling or skin change. No edema of the exterior or internal nose structures but pain on movement of the nose. Normal voice no trismus normal ENT exam overall including normal intraoral structures uvula midline etc. Eyes: Conjunctiva normal, pupils equal, lids normal Neck: No JVD, supple, no guarding CVS: Normal rate, regular rhythm, no murmurs Resp: No resp distress, equal and normal breath sounds bilaterally GI: Nondistended, soft, no tenderness to palpation, no rebound or guarding Ext: No deformities, no edema, normal range of motion in upper and lower ext Back: No CVA or midline TTP Skin: No rash, warm Lymphatic: No lymphadeopathy noted Neuro: Awake, alert. Face symmetric. GCS 15. Physical Exam - Vital signs Vitals: Temp Pulse Resp BP Pulse Ox 99.2 F 88 18 133/72 H 98 02/20/20 16:19 02/20/20 16:19 02/20/20 16:19 02/20/20 16:19 02/20/20 16:19 Course - Re-evaluation Re-evalutation: 02/20/20 16:36 Nasal pain and tenderness leading to face pain and tenderness likely sinusitis. Differential quids herpetic outbreak but I do not see this clinically. Has some left-sided face numbness likely due to swelling but no other facial numbness or neurologic symptoms. Will treat with steroids and antibiotics, and will discharge to follow-up with primary care. I have discussed with the patient there likely diagnosis, aftercare plan, follow-up plans and my usual and customary return precautions. They verbalized understanding of this. - Vital Signs Vital signs: Temp Pulse Resp BP Pulse Ox 99.2 F 88 18 133/72 H 98 02/20/20 16:19 02/20/20 16:19 02/20/20 16:19 02/20/20 16:19 02/20/20 16:19 Discharge - Discharge Clinical Impression: Facial pain Condition: Good Disposition: HOME, SELF-CARE Instructions: Sinusitis ([facility]) Additional Instructions: Discussed her diagnosis is not 100% clear but we are treating for a sinus infection to see if you improve. If your numbness gets any worse your pain gets more severe or you develop fevers please return to the emergency room. Prescriptions: Doxycycline Hyclate 100 mg PO BID #10 tablet. Prednisone 30 mg PO DAILY #15 tablet Referrals: [facility] [Provider Group] - Follow up as needed
== END 2020-02-20 17:22 | disposition home or self-care (01) ==
LOC: ER 16:04
DX: R51 Headache (principal); R20.0 Anesthesia of skin; F17.210 Nicotine dependence, cigarettes, uncomplicated; Z88.3 Allergy status to other anti-infective agents; Z88.0 Allergy status to penicillin
CPT/HCPCS: 99283

== ENCOUNTER 2020-02-22 21:09 | Emergency (ER) | payer SELFPAY ==
[2020-02-22 21:14] VITALS: BP 142/83
== END 2020-02-22 23:04 | disposition left against medical advice (07) ==
LOC: ER 21:09
DX: Z53.21 Procedure and treatment not carried out due to patient leaving prior to being seen by health care provider (principal)

== ENCOUNTER 2020-06-18 23:54 | Emergency (ER) | payer MEDICAID, OTHER ==
[2020-06-19] MEDS ORDERED: ONDANSETRON 4 MG TAB.RAPDIS PO ONE (01:14)
[2020-06-19] MEDS ORDERED: OXYCODONE-ACETAMINOPHEN 5-325 MG TABLET PO ONE (01:14)
--- NOTE | 2020-06-19 01:18 | ER Document Report ---
ED Medical Screen (RME) - General Chief Complaint: Fall Injury Stated Complaint: FALL/RIB INJURY/BACK PAIN Time Seen by Provider: 06/19/20 01:14 Mode of Arrival: Ambulatory Information source: Patient Notes: 35-year-old female comes in today with injuries related to falling down stairs while carrying furniture. States a couple of days ago fell down couple stairs while carrying a heavy piece of furniture. Complains of injury to her left ribs particularly under her left breast, left shoulder, upper and lower back. She struck her head. Has been dizzy and vomiting. General: Looks uncomfortable Musculoskeletal left anterior rib tenderness, left shoulder tenderness, left paralumbar and left parathoracic tenderness Neuro no focal deficits I have greeted and performed a rapid initial assessment of this patient. A comprehensive ED assessment and evaluation of the patient, analysis of test results and completion of the medical decision making process will be conducted by additional ED providers. TRAVEL OUTSIDE OF THE [place] IN LAST 30 DAYS: No - Related Data Allergies/Adverse Reactions: azithromycin Allergy (Verified 01/04/19 15:23) Penicillins Allergy (Verified 01/04/19 15:23) contrast dye Allergy (Uncoded 01/04/19 15:23) Past Medical History Renal/ Medical History: Denies: Hx Peritoneal Dialysis Psychiatric Medical History: Reports: Hx Depression Past Surgical History: Reports: Hx Gynecologic Surgery, Hx Orthopedic Surgery - nose, Other - I&D Physical Exam - Vital signs Vitals: Temp Pulse Resp BP Pulse Ox 98.0 F 79 18 134/76 H 96 06/19/20 00:39 06/19/20 00:39 06/19/20 00:39 06/19/20 00:39 06/19/20 00:39 Course - Vital Signs Vital signs: Temp Pulse Resp BP Pulse Ox 98.0 F 79 18 134/76 H 96 06/19/20 00:39 06/19/20 00:39 06/19/20 00:39 06/19/20 00:39 06/19/20 00:39
--- NOTE | 2020-06-19 01:54 | RADIOLOGY REPORT (SQ) ---
CLINICAL HISTORY: injury COMPARISON: 06/30/2018. TECHNIQUE: CT HEAD WITHOUT IV CONTRAST on 06/19/2020 1:15 AM CDT This exam was performed according to our departmental dose-optimization program, which includes automated exposure control, adjustment of the mA and/or kV according to patient size and/or use of iterative reconstruction technique. FINDINGS: There is no acute hemorrhage, mass effect or midline shift. Sandhu-white differentiation is preserved. There is no hydrocephalus. There is no significant volume loss for age. The calvarium is intact. Orbits and globes are unremarkable. The paranasal sinuses are clear. Mastoid air cells are clear. IMPRESSION: No acute intracranial findings.
--- NOTE | 2020-06-19 02:08 | RADIOLOGY REPORT (SQ) ---
CLINICAL HISTORY: injury COMPARISON: None. TECHNIQUE: XR LUMBAR SPINE ANTEROPOSTERIOR, LATERAL, AND OBLIQUES 06/19/2020 1:15 AM CDT FINDINGS: There is no acute fracture. Vertebral body heights are preserved. Alignment is anatomic. Disc spaces are maintained. Soft tissues are unremarkable. IMPRESSION: No acute fracture or subluxation.
--- NOTE | 2020-06-19 02:13 | RADIOLOGY REPORT (SQ) ---
EXAM DESCRIPTION: XR THORACIC SPINE 2 VIEWS COMPLETED DATE/TME: 06/19/2020 01:15 CLINICAL HISTORY: 35 years, Female, injury COMPARISON: None. NUMBER OF VIEWS: 2 TECHNIQUE: 2 view thoracic spine LIMITATIONS: None. FINDINGS: Vertebral body height and alignment is preserved. Disc spaces are maintained. IMPRESSION: Unremarkable exam copyright 2011 [employer]- All Rights Reserved
--- NOTE | 2020-06-19 02:17 | RADIOLOGY REPORT (SQ) ---
CLINICAL HISTORY: injury COMPARISON: None. TECHNIQUE: XR SHOULDER 2 OR MORE VIEWS 06/19/2020 1:15 AM CDT FINDINGS: There is no fracture. Joint spaces are preserved. Soft tissues are unremarkable. IMPRESSION: No acute osseous findings.
--- NOTE | 2020-06-19 02:25 | RADIOLOGY REPORT (SQ) ---
EXAM DESCRIPTION: XR RIBS UNILATERAL WITH CHEST COMPLETED DATE/TME: 06/19/2020 01:15 CLINICAL HISTORY: 35 years, Female, injury COMPARISON: Chest x-ray 09/26/2017 NUMBER OF VIEWS: 3 TECHNIQUE: Frontal view the chest and 2 views left RIBS LIMITATIONS: None. FINDINGS: Heart size normal. Lungs clear. No pneumothorax. Negative for left rib fracture IMPRESSION: Negative exam copyright 2010 [employer]- All Rights Reserved
--- NOTE | 2020-06-19 04:34 | ER Document Report ---
ED Fall - General Chief Complaint: Rib Pain Stated Complaint: FALL/RIB INJURY/BACK PAIN Time Seen by Provider: 06/19/20 01:14 Mode of Arrival: Ambulatory Information source: Patient TRAVEL OUTSIDE OF THE [place] IN LAST 30 DAYS: No - HPI Occurred: Other - 3 days ago Where: Home Context: Tripped Associated symptoms: None Location of injury/pain: Back, Head, Shoulder Notes: Patient is a 35-year-old female with no significant past medical history who presents after a fall. Patient states she was moving approximately 3 days ago. She was carrying a dresser down the stairs. Patient lost her balance and fell down about 3 stairs. Patient states she hit her head on the concrete. Patient states the dresser fell onto her left ribs. She has been taking ibuprofen with minimal relief. Patient states the pain was not improving so she came in to get evaluated. She states that yesterday she had an episode where she became lightheaded while at the [employer] checkout. Patient did not lose consciousness. She has also felt nauseous today. Patient also mentions that she has had a vaginal odor for about 1 month. This reminds her of the bacterial vaginosis she had. She denies any concern for STDs. States she would like a pelvic exam and testing. - Related data Allergies/Adverse Reactions: azithromycin Allergy (Verified 01/04/19 15:23) Penicillins Allergy (Verified 01/04/19 15:23) contrast dye Allergy (Uncoded 01/04/19 15:23) Past Medical History - General Information source: Patient - Social History Smoking Status: Current Every Day Smoker Family History: Reviewed & Not Pertinent Renal/ Medical History: Denies: Hx Peritoneal Dialysis Psychiatric Medical History: Reports: Hx Depression Past Surgical History: Reports: Hx Gynecologic Surgery, Hx Orthopedic Surgery - nose, Other - I&D Review of Systems - Review of Systems Notes: CONSTITUTIONAL: No fever, fatigue or weight loss. SKIN: No rash. HENT: No congestion, ear pain, or sore throat. EYES: No recent vision problems or eye pain. ENDOCRINE: No polyuria or polydipsia. CARDIOVASCULAR: No chest pain or edema. RESPIRATORY: No cough, shortness of breath, congestion, or wheezing. GASTROINTESTINAL: No abdominal pain. Positive for nausea and vomiting. GENITOURINARY: No dysuria. Positive for vaginal odor. No discharge or sores. MUSCULOSKELETAL: Positive for discomfort to left shoulder, left back LYMPHATIC: No swollen glands. NEUROLOGIC: No seizures. No headache, focal weakness or sensory changes. HEMATOLOGIC: No unusual bruising or bleeding. PSYCHIATRIC: No depression or anxiety. Physical Exam - Vital signs Vitals: Temp Pulse Resp BP Pulse Ox 98.0 F 79 18 134/76 H 96 06/19/20 00:39 06/19/20 00:39 06/19/20 00:39 06/19/20 00:39 06/19/20 00:39 - Notes Notes: VITAL SIGNS: Within normal limits. GENERAL: No acute distress, non-toxic appearance. HEAD: Normal with no signs of head trauma. EYES: PERRLA, EOMI, conjunctiva normal, no discharge. EARS: Hearing grossly intact. NOSE: Normal. THROAT: Oropharynx is normal. NECK: Normal range of motion, no tenderness, supple, no lymphadenopathy, No adenopathy, no JVD. CHEST: Clear breath sounds bilaterally. No wheezes, rales, or rhonchi. CARDIAC: Regular rate and rhythm. S1 and S2, without murmurs, gallops, or rubs. VASCULAR: No Edema. ABDOMEN: Normal and soft with no tenderness, no masses or pulsatile masses. GENITOURINARY: Normal, No tenderness. Pelvic xam performed with female senior technical architect. No discharge or rash. LYMPATHTIC: No lymphadenopathy noted. MUSCULOSKELETAL: Good range of motion of all major joints. Extremities without clubbing, cyanosis or edema. Ecchymosis to left flank. NEUROLOGICAL: Alert and oriented x 3. No focal sensory or strength deficits. Speech normal. Follows commands appropriately. PSYCHIATRIC: Normal Affect, judgement and mood. SKIN: Normal appearance with no rashes or lesions. Course - Re-evaluation Re-evalutation: 06/19/20 07:17 Patient's x-rays were negative for fracture or pneumothorax. Her head CT was negative. States she feels better after the Percocet. She has normal range of m otion. Pelvic exam was performed with female senior technical architect. Testing was positive for bacterial vaginosis. I informed her that the gonorrhea and Chlamydia are pending and she will be called with the results. I will send a prescription for Flagyl. Discussed with her concussion precautions including staying hydrated and taking breaks and avoiding excessive screen time. She was told that she can put lidocaine and heat compresses on the rib pain and back pain. Instructed her to follow-up with the PCP for the slight microscopic hematuria for a recheck. Was given strict return precautions. She verbalized understanding. - Vital Signs Vital signs: Temp Pulse Resp BP Pulse Ox 98.0 F 79 18 134/76 H 96 06/19/20 00:39 06/19/20 00:39 06/19/20 00:39 06/19/20 00:39 06/19/20 00:39 - Laboratory Laboratory results interpreted by me: 06/19/20 04:35 Urine Blood MODERATE H Discharge - Discharge Clinical Impression: Bacterial vaginosis Fall Qualifiers: Encounter type: initial encounter Qualified Code(s): W19.XXXA - Unspecified fall, initial encounter Back pain Qualifiers: Back pain location: back pain in unspecified location Chronicity: acute Back pain laterality: unspecified Qualified Code(s): M54.9 - Dorsalgia, unspecified Closed head injury Qualifiers: Encounter type: initial encounter Qualified Code(s): S09.90XA - Unspecified injury of head, initial encounter Concussion Qualifiers: Encounter type: initial encounter Loss of consciousness presence/duration: without LOC Qualified Code(s): S06.0X0A - Concussion without loss of consciousness, initial encounter Condition: Stable Disposition: HOME, SELF-CARE Instructions: Vaginosis, Bacterial ([facility]), Low Back Pain ([facility]), Concussion ([facility]) Additional Instructions: Please follow-up with your PCP. You had some slight blood in your urine. You will need a repeat urinalysis. Use the lidocaine patch and alternate Tylenol and ibuprofen as needed. You may also use heat. Please return for any worsening symptoms. You also may have sustained a concussion after the fall. Make sure you are staying hydrated and drinking fluids. Make sure you were getting rest. Follow-up with your PCP this week Prescriptions: Metronidazole [Flagyl 500 mg Tablet] 500 mg PO BID 7 Days #14 tablet Referrals: PIPPA HAYES MD [COMMUNITY BASED STAFF] - Follow up in 3-5 days
[2020-06-19 05:29] LABS: EPITHELIALS (WET MOUNT) 3+ EPITHELIALS SEEN; T.VAGINALIS (WET MOUNT) NO TRICHOMONAS SEEN; WBCS (WET MOUNT) FEW WBCS SEEN; YEAST (WET MOUNT) NO YEAST SEEN
[2020-06-19 05:42] LABS: APPEARANCE,URINE CLEAR; BILIRUBIN,URINE NEGATIVE (NEGATIVE); COLOR,URINE YELLOW; GLUCOSE, URINE NEGATIVE (NEGATIVE); KETONES,URINE NEGATIVE (NEGATIVE); LEUKOCYTE ESTERASE,URINE NEGATIVE (NEGATIVE); NITRITE,URINE NEGATIVE (NEGATIVE); PROTEIN,URINE NEGATIVE (NEGATIVE); UROBILINOGEN,URINE NEGATIVE mg/dL (<2.0)
[2020-06-19 07:00] VITALS: BP 141/80
[2020-06-19 07:03] LABS: CHLAM PCR NOT DETECTED (NOT DETECT)
== END 2020-06-19 07:10 | disposition home or self-care (01) ==
LOC: ER 23:54
DX: S06.0X0A Concussion without loss of consciousness, initial encounter (principal); S30.1XXA Contusion of abdominal wall, initial encounter; R07.81 Pleurodynia; M54.9 Dorsalgia, unspecified; W10.9XXA Fall (on) (from) unspecified stairs and steps, initial encounter; W20.8XXA Other cause of strike by thrown, projected or falling object, initial encounter; Y93.89 Activity, other specified; Y92.009 Unspecified place in unspecified non-institutional (private) residence as the place of occurrence of the external cause; N76.0 Acute vaginitis; B96.89 Other specified bacterial agents as the cause of diseases classified elsewhere; R42 Dizziness and giddiness; R11.0 Nausea; F17.200 Nicotine dependence, unspecified, uncomplicated; Z88.0 Allergy status to penicillin; Z91.041 Radiographic dye allergy status
CPT/HCPCS: 99285; 87210; 81025; 81001; 87491; 87591; 72110; 71101; 73030; 72070; 70450; S0119

== ENCOUNTER 2020-07-30 02:37 | Emergency (ER) | payer MEDICAID, OTHER ==
[2020-07-30 02:50] VITALS: BP 126/87
[2020-07-30] MEDS ORDERED: ACETAMINOPHEN 325 MG TABLET PO ONE (03:26)
--- NOTE | 2020-07-30 04:27 | RADIOLOGY REPORT (SQ) ---
EXAM: XR Right Forearm, 2 Views EXAM DATE/TIME: 07/30/2020 3:32 AM CLINICAL HISTORY: The patient is 35 years old and is Female; poss glass in wound TECHNIQUE: Frontal and lateral views of the right forearm. COMPARISON: No relevant prior studies available. FINDINGS: BONES/JOINTS: No acute fracture. No dislocation. No obvious elbow joint effusion. SOFT TISSUES: There is minimal subcutaneous stranding about the medial aspect of the proximal forearm. No obvious radiopaque foreign body. IMPRESSION: Minimal subcutaneous stranding about the proximal forearm. No obvious radiopaque foreign body.
--- NOTE | 2020-07-30 04:30 | RADIOLOGY REPORT (SQ) ---
EXAM: XR Right Hand, 3 views EXAM DATE/TIME: 07/30/2020 3:34 AM CLINICAL HISTORY: The patient is 35 years old and is Female; pain in bone TECHNIQUE: 3 views of the right hand. COMPARISON: No relevant prior studies available. FINDINGS: BONES/JOINTS: No acute fracture. No dislocation. Joint spaces are well-maintained. SOFT TISSUES: No significant soft tissue swelling visualized. No obvious radiopaque foreign body. IMPRESSION: No acute findings.
== END 2020-07-30 05:15 | disposition left against medical advice (07) ==
LOC: ER 02:37
DX: Z53.21 Procedure and treatment not carried out due to patient leaving prior to being seen by health care provider (principal)

== ENCOUNTER 2020-08-28 19:42 | Emergency (ER) | payer MEDICAID, OTHER ==
[2020-08-28 19:58] VITALS: BP 118/66
[2020-08-28] MEDS ORDERED: KETOROLAC TROMETHAMINE 60 MG/2 ML SDV IM ONE (21:09)
[2020-08-28] MEDS ORDERED: HYDROCODONE/ACETAMINOPHEN 5-325 MG TABLET PO ONE (21:09)
--- NOTE | 2020-08-28 21:18 | ER Document Report ---
ED Neck/Back Problem - General Chief Complaint: Back Pain Stated Complaint: LOW BACK PAIN Time Seen by Provider: 08/28/20 21:02 Notes: CHIEF COMPLAINT: Low back injury HPI: 35-year-old female presenting to the emergency department complaining of low back injury. Patient bent forward after getting out of the shower to put her hair up and felt something pop in the low back. She now has pain in the low lumbar back on the left side. No incontinence of urine or bowel. No weakness numbness or tingling in the legs. No perineal numbness ROS: See HPI - all other systems were reviewed and are otherwise negative Constitutional: no fever GI: no vomiting, no diarrhea, no abdominal pain : no dysuria Musculoskeletal: no extremity pain or swelling Neurological: no numbness/tingling, no weakness MEDICATIONS: I agree with the patient medications as charted by the RN. ALLERGIES: I agree with the allergies as charted by the RN. PAST MEDICAL HISTORY/PAST SURGICAL HISTORY: Reviewed and agree as charted by RN. SOCIAL HISTORY: Reviewed and agree as charted by RN. FAMILY HISTORY: No significant familial comorbid conditions directly related to patient complaint EXAM: Reviewed vital signs as charted by RN. CONSTITUTIONAL: Alert and oriented and responds appropriately to questions. Well-appearing; well-nourished HEAD: Normocephalic; atraumatic EYES: conjunctivae clear, sclerae non-icteric ENT: normal nose; no rhinorrhea; moist mucous membranes NECK: Supple without meningismus CARD: symmetric distal pulses RESP: Normal chest excursion without splinting or tachypnea ABD/GI: non-distended; soft, non-tender, no rebound, no guarding; no palpable organomegaly or masses. BACK: The back appears normal and is tender to palpation in the lower lumbar back in the L5 region to the left in the paraspinous musculature, there is no CVA tenderness EXT: Normal ROM in all joints; non-tender to palpation; no cyanosis, no effusions, no edema SKIN: Normal color for age and race; warm; dry; good turgor; no acute lesions noted NEURO: Moves all extremities equally; Motor and sensory function intact. Strength equal 5/5 bilateral lower extremities. Sensation intact and equal bilateral lower extremities. Straight leg raise is negative. No saddle anesthesia on exam. DTRs 2+ intact and equal bilateral lower extremities. PSYCH: The patient's mood and manner are appropriate. Grooming and personal hygiene are appropriate. MDM: 35-year-old female who is neurologically intact with low back pain on the left side after bending over and feeling something pop in the low back. She is not concerned about a fracture. No indication for imaging at this time given the nature of the injury and where the patient is uncomfortable and a normal neurologic exam. Will treat patient's symptoms refer to orthopedics for further follow-up and management with strict return precautions discussed with the patient who verbalizes understanding TRAVEL OUTSIDE OF THE [place] IN LAST 30 DAYS: No - Related Data Allergies/Adverse Reactions: azithromycin Allergy (Verified 08/28/20 21:00) Penicillins Allergy (Verified 08/28/20 21:00) contrast dye Allergy (Uncoded 08/28/20 21:00) Past Medical History - Social History Smoking Status: Current Every Day Smoker Family History: Reviewed & Not Pertinent Patient has homicidal ideation: No Renal/ Medical History: Denies: Hx Peritoneal Dialysis Psychiatric Medical History: Reports: Hx Depression Past Surgical History: Reports: Hx Gynecologic Surgery, Hx Orthopedic Surgery - nose, Other - I&D Physical Exam - Vital signs Vitals: Temp Pulse Resp BP Pulse Ox 98.4 F 85 20 118/66 97 08/28/20 19:57 08/28/20 19:57 08/28/20 19:57 08/28/20 19:57 08/28/20 19:57 Course - Vital Signs Vital signs: Temp Pulse Resp BP Pulse Ox 98.4 F 85 20 118/66 97 08/28/20 19:57 08/28/20 19:57 08/28/20 19:57 08/28/20 19:57 08/28/20 19:57 - Laboratory Results Critical Laboratory Results Reviewed: No Critical Results - Radiology Results Critical Radiology Results Reviewed: No Critical Results Discharge - Discharge Clinical Impression: Lower back injury Qualifiers: Encounter type: initial encounter Qualified Code(s): S39.92XA - Unspecified injury of lower back, initial encounter Condition: Stable Disposition: HOME, SELF-CARE Instructions: Oral Narcotic Medication ([facility]), Low Back Pain ([facility]) Additional Instructions: 1. Warm heat to the lower back twice daily 2. no heavy lifting for 2-3 days 3. medications as prescribed, no driving on narcotics or muscle relaxers 4. follow up with orthopedics for further evaluation and treatment as needed for any continuing pain or problems, call for appt. 5. return to the ER for any onset of incontinence of urine, fever > 101 or worsening condition Prescriptions: Cyclobenzaprine HCl [Flexeril 10 mg Tablet] 10 mg PO TIDP PRN #15 tab PRN Reason: Hydrocodone/Acetaminophen [[place] 5-325 mg Tablet] 1 tab PO Q4 PRN #15 tablet PRN Reason: Diclofenac Sodium [Voltaren 50 Mg Tablet.] 50 mg PO BID #20 tablet. Referrals: FORTINO HOLMAN DO [ACTIVE STAFF] - Follow up as needed
== END 2020-08-28 21:30 | disposition home or self-care (01) ==
LOC: ER 19:42
DX: S39.92XA Unspecified injury of lower back, initial encounter (principal); X50.1XXA Overexertion from prolonged static or awkward postures, initial encounter; Y92.002 Bathroom of unspecified non-institutional (private) residence as the place of occurrence of the external cause; F17.200 Nicotine dependence, unspecified, uncomplicated; Z88.0 Allergy status to penicillin
CPT/HCPCS: 99284; 96372; J1885

== ENCOUNTER 2020-09-09 09:52 | Emergency (ER) | payer MEDICAID, OTHER ==
[2020-09-09] MEDS ORDERED: ACETAMINOPHEN 325 MG TABLET PO ONE ×2 (10:30→11:21)
--- NOTE | 2020-09-09 11:07 | RADIOLOGY REPORT (SQ) ---
EXAM DESCRIPTION: CHEST SINGLE VIEW IMAGES COMPLETED DATE/TIME: 09/09/2020 10:54 am REASON FOR STUDY: chest pain COMPARISON: 09/26/2017. EXAM PARAMETERS: NUMBER OF VIEWS: One view. TECHNIQUE: Single frontal radiographic view of the chest acquired. RADIATION DOSE: NA LIMITATIONS: None. FINDINGS: LUNGS AND PLEURA: No opacities, masses or pneumothorax. No pleural effusion. MEDIASTINUM AND HILAR STRUCTURES: No masses. Contour normal. HEART AND VASCULAR STRUCTURES: Heart normal in size. Normal vasculature. BONES: No acute findings. HARDWARE: None in the chest. OTHER: No other significant finding. IMPRESSION: NO ACUTE RADIOGRAPHIC FINDING IN THE CHEST. TECHNICAL DOCUMENTATION: JOB ID: [id number] 2010 [employer] All Rights Reserved Reading location - IP/workstation name: [email or web address]
[2020-09-09 11:08] LABS: APPEARANCE,URINE CLEAR; BILIRUBIN,URINE NEGATIVE (NEGATIVE); COLOR,URINE YELLOW; GLUCOSE, URINE NEGATIVE (NEGATIVE); KETONES,URINE NEGATIVE (NEGATIVE); LEUKOCYTE ESTERASE,URINE NEGATIVE (NEGATIVE); NITRITE,URINE NEGATIVE (NEGATIVE); PROTEIN,URINE NEGATIVE (NEGATIVE); URINE SPECIFIC GRAVITY 1.016; UROBILINOGEN,URINE NEGATIVE mg/dL (<2.0)
[2020-09-09] MEDS ORDERED: RINGERS LACTATED IV ONE (11:20)
[2020-09-09] MEDS ORDERED: DIPHENHYDRAMINE HCL 50 MG/ML VIAL IV ONE (11:23)
[2020-09-09] MEDS ORDERED: PROCHLORPERAZINE EDISYLATE INJ 10 MG/2 ML VIAL IV ONE (11:23)
--- NOTE | 2020-09-09 11:23 | ER Document Report ---
ED Medical Screen (RME) - General Chief Complaint: Flu Symptoms Stated Complaint: CHEST PAIN Time Seen by Provider: 09/09/20 11:14 Notes: Patient presents complaining of chest pain headache and fever that started yesterday. Patient complains of diarrhea and nausea. Patient denies any vomiting. Patient reports possible Covid exposure at work. Patient states that she has not had a cough although she does feel as though she has pneumonia. I have greeted and performed a rapid initial assessment of this patient. A comprehensive ED assessment and evaluation of the patient, analysis of test results and completion of the medical decision making process will be conducted by additional ED providers. TRAVEL OUTSIDE OF THE [place] IN LAST 30 DAYS: No - Related Data Allergies/Adverse Reactions: azithromycin Allergy (Verified 09/09/20 10:11) Penicillins Allergy (Verified 09/09/20 10:11) contrast dye Allergy (Uncoded 09/09/20 10:11) Past Medical History - Social History Chew tobacco use (# tins/day): No Frequency of alcohol use: None Drug Abuse: None Renal/ Medical History: Denies: Hx Peritoneal Dialysis Psychiatric Medical History: Reports: Hx Depression Past Surgical History: Reports: Hx Gynecologic Surgery, Hx Orthopedic Surgery - nose, Other - I&D Physical Exam - Vital signs Vitals: Temp Pulse Resp BP Pulse Ox 101.3 F H 115 H 22 H 137/78 H 98 09/09/20 10:26 09/09/20 10:26 09/09/20 10:26 09/09/20 10:26 09/09/20 10:26 - General General appearance: Alert, Anxious Notes: Full, no meningismus Course - Vital Signs Vital signs: Temp Pulse Resp BP Pulse Ox 101.3 F H 115 H 22 H 137/78 H 98 09/09/20 10:26 09/09/20 10:26 09/09/20 10:26 09/09/20 10:26 09/09/20 10:26 - Laboratory Results Laboratory Results Interpreted: 09/09/20 10:50 Urine Blood SMALL H
[2020-09-09 11:46] LABS: ABSOLUTE BASOPHILS # (AUTO) 0.1 10^3/uL (0.0-0.2); ABSOLUTE EOSINOPHILS # (AUTO) 0.2 10^3/uL (0.0-0.6); ABSOLUTE LYMPHOCYTES (AUTO) 0.6 10^3/uL (0.5-4.7); ABSOLUTE MONOCYTES (AUTO) 0.7 10^3/uL (0.1-1.4); ABSOLUTE NEUT (AUTO) 7.9 10^3/uL (1.7-8.2); BASOPHILS % (AUTO) 0.9 % (0-2); EOSINOPHILS % (AUTO) 1.8 % (0-6); HEMATOCRIT 40.3 % (36.0-47.0); LYMPHOCYTES % (AUTO) 5.9 % (13-45); MEAN CORPUSCULAR HEMOGLOBIN 30.5 pg (27.0-33.4); MEAN CORPUSCULAR HGB CONC 34.7 g/dL (32.0-36.0); MEAN CORPUSCULAR VOLUME 88 fl (80-97); MONOCYTES % (AUTO) 7.7 % (3-13); PLATELET COUNT 297 10^3/uL (150-450); RED BLOOD COUNT 4.58 10^6/uL (3.72-5.28); SEGMENTED NEUTROPHILS % (AUTO) 83.7 % (42-78); TOTAL CELLS COUNTED % (AUTO) 100 %; WHITE BLOOD COUNT 9.4 10^3/uL (4.0-10.5)
[2020-09-09 11:49] LABS: INTERNATIONAL RATION (INR) 0.99; PROTHROMBIN TIME 13.3 SEC (11.4-15.4)
[2020-09-09 12:03] LABS: ALBUMIN 4.3 g/dL (3.5-5.0); ALKALINE PHOSPHATASE 58 U/L (38-126); ANION GAP 9 (5-19); ASPARTATE AMINO TRANSFERASE 23 U/L (14-36); BILIRUBIN,DIRECT 0.1 mg/dL (0.0-0.4); BILIRUBIN,TOTAL 0.4 mg/dL (0.2-1.3); BLOOD UREA NITROGEN 14 mg/dL (7-20); CALCIUM 9.5 mg/dL (8.4-10.2); CARBON DIOXIDE 23 mmol/L (22-30); CHLORIDE 101 mmol/L (98-107); CREATINE KINASE 75 U/L (30-135); GLUCOSE 87 mg/dL (75-110); POTASSIUM 4.4 mmol/L (3.6-5.0); TOTAL PROTEIN 7.5 g/dL (6.3-8.2)
--- NOTE | 2020-09-09 12:13 | EKG REPORT ---
SEVERITY:- BORDERLINE ECG - SINUS TACHYCARDIA PROBABLE LEFT ATRIAL ABNORMALITY BORDERLINE T ABNORMALITIES, ANTERIOR LEADS : Confirmed by: Candice Cee MD 09-Sep-2020 12:12:07
[2020-09-09 12:23] LABS: VENOUS BLOOD BASE EXCESS -5.7 mmol/L; VENOUS BLOOD HCO3 17.4 mmol/L (20-32); VENOUS BLOOD PCO2 28.4 mmHg (35-63); VENOUS BLOOD PH 7.41 (7.30-7.42)
[2020-09-09 12:56] LABS: A TYPE INFLUENZA AG NEGATIVE (NEGATIVE); B INFLUENZA AG NEGATIVE (NEGATIVE)
[2020-09-09] MEDS ORDERED: KETOROLAC TROMETHAMINE INJ/PF 30 MG/1 ML SDV IV ONE (13:08)
[2020-09-09] MEDS ORDERED: ONDANSETRON HCL INJ/PF 4 MG/2 ML SDV IV ONE (13:08)
--- NOTE | 2020-09-09 13:57 | ER Document Report ---
ED General - General Chief Complaint: Flu Symptoms Stated Complaint: CHEST PAIN Time Seen by Provider: 09/09/20 11:14 TRAVEL OUTSIDE OF THE [place] IN LAST 30 DAYS: No - HPI Notes: 35 year old female to the Ed with C/O body aches, sore throat, weakness, chills, subjective fevers that began last night and have gotten worse today. She has not taken anything for her symptoms. Admits to a slight cough. Denies cough, SOB, abd pain. Does admit to nausea and diarrhea. She states she feels like she may have pneumonia. She states that she works at [employer] and one of her coworkers just came back from sick leave after after COVID. - Related Data Allergies/Adverse Reactions: azithromycin Allergy (Verified 09/09/20 10:11) Penicillins Allergy (Verified 09/09/20 10:11) contrast dye Allergy (Uncoded 09/09/20 10:11) Past Medical History - General Information source: Patient - Social History Smoking Status: Current Every Day Smoker Chew tobacco use (# tins/day): No Frequency of alcohol use: None Drug Abuse: None Family History: Reviewed & Not Pertinent Patient has homicidal ideation: No Renal/ Medical History: Denies: Hx Peritoneal Dialysis Psychiatric Medical History: Reports: Hx Depression Past Surgical History: Reports: Hx Gynecologic Surgery, Hx Orthopedic Surgery - nose, Other - I&D Review of Systems - Review of Systems Constitutional: Chills, Fever, Malaise EENT: Throat pain Cardiovascular: See HPI, Chest pain. denies: Palpitations, Dyspnea, Syncope, Dizziness Gastrointestinal: Diarrhea, Nausea. denies: Abdominal pain Genitourinary: No symptoms reported Female Genitourinary: No symptoms reported Musculoskeletal: Muscle pain - body aches Skin: No symptoms reported Hematologic/Lymphatic: No symptoms reported Neurological/Psychological: Headaches Physical Exam - Vital signs Vitals: Temp Pulse Resp BP Pulse Ox 101.3 F H 115 H 22 H 137/78 H 98 09/09/20 10:26 09/09/20 10:26 09/09/20 10:26 09/09/20 10:26 09/09/20 10:26 - Notes Notes: PHYSICAL EXAMINATION: GENERAL: Well-appearing, well-nourished. Appears to be uncomfortable HEAD: Atraumatic, normocephalic. EYES: Pupils equal round and reactive to light, extraocular movements intact, sclera anicteric, conjunctiva are normal. ENT: nares patent, oropharynx clear without exudates. Moist mucous membranes. TMs clear bilaterally. Airways grossly patent NECK: Normal range of motion, supple without lymphadenopathy LUNGS: Breath sounds clear to auscultation bilaterally and equal. No wheezes rales or rhonchi. no TTP over the chest wall. no accessory muscle use HEART: Regular rate and rhythm without murmurs. no pitting edema ABDOMEN: Soft, nontender, normoactive bowel sounds. No guarding, no rebound. No masses appreciated. EXTREMITIES: Normal range of motion. No cyanosis. NEUROLOGICAL: No focal neurological deficits. Moves all extremities spontaneously and on command. PSYCH: Normal mood, normal affect. SKIN: Warm, Dry, normal turgor, no rashes or lesions noted. Course - Re-evaluation Re-evalutation: Impression: Flu like symptoms with viral upper respiratory illness. Very suspicious for COVID. Noted labs and chest XR. Patient's vitals have improved since antipyretics. WIll discharge the patient home. Encouraged to quarantine for the next 10 days. Encouraged to return if worsening symptoms. As a person under investigation for COVID-19, [place] department of Health and Human Services, division of public health advises you to adhere to the following guidance until your test results are reported to you. If your test result is positive, you will receive additional information from your provider and your local health department at that time. Remain at home until you are cleared by the healthcare provider public health authorities. Keep a log of visitors to your home and notify any visitors to your home of your isolation status. If you plan to move to a new address or leave the country, notify the local health department and your County. Call your doctor or seek care if you have an urgent medical need. Before seeking medical care, call ahead to get instructions from the provider before arriving at the medical office, clinic, or hospital. Notify them that you are being tested for the virus that causes COVID-19 so that arrangements can be made, as necessary, to prevent transmission to others in the healthcare setting. Next, notify the local health department and your County. If a medical emergency arises and you need to call 911, informed the first responders that you are being tested for the virus that causes COVID-19. Next, notified the local health department and your County. - Vital Signs Vital signs: Temp Pulse Resp BP Pulse Ox 98.3 F 79 16 109/53 L 94 09/09/20 14:16 09/09/20 14:16 09/09/20 14:16 09/09/20 14:16 09/09/20 14:16 improved vitals signs - Laboratory Results Result Diagrams: 09/09/20 11:25 09/09/20 11:25 Laboratory Results Interpreted: 09/09/20 09/09/20 09/09/20 10:50 11:25 11:25 Lymph % (Auto) 5.9 L Seg Neutrophils % 83.7 H VBG pCO2 VBG HCO3 Sodium 133.2 L Urine Blood SMALL H COVID-19 (KAREN) 09/09/20 09/09/20 11:52 11:52 Lymph % (Auto) Seg Neutrophils % VBG pCO2 28.4 L VBG HCO3 17.4 L Sodium Urine Blood COVID-19 (KAREN) DETECTED A Critical Laboratory Results Reviewed: No Critical Results - Radiology Results Critical Radiology Results Reviewed: No Critical Results Discharge - Discharge Clinical Impression: Flu-like symptoms, Generalized body aches, Encounter for laboratory testing for COVID-19 virus Fever Qualifiers: Fever type: unspecified Qualified Code(s): R50.9 - Fever, unspecified Condition: Stable Disposition: HOME, SELF-CARE Instructions: COVID-19 Guidance for Persons Under Investigation Additional Instructions: Push fluids. Take medicines as prescribed. Alternate between Tylenol Motrin. Return if you have worsening symptoms such as significant shortness of breath. Your coronavirus swab is still pending. You should quarantine at home away from others and wear a mask and wash your hands frequently until you know the result. If your result was positive you should call quarantine for 10 days. As a person under investigation for COVID-19, [place] department of Health and Human Services, division of public health advises you to adhere to the following guidance until your test results are reported to you. If your test result is positive, you will receive additional information from your provider and your local health department at that time. Remain at home until you are cleared by the healthcare provider public health authorities. Keep a log of visitors to your home and notify any visitors to your home of your isolation status. If you plan to move to a new address or leave the country, notify the local health department and your County. Call your doctor or seek care if you have an urgent medical need. Before seeking medical care, call ahead to get instructions from the provider before arriving at the medical office, clinic, or hospital. Notify them that you are being tested for the virus that causes COVID-19 so that arrangements can be made, as necessary, to prevent transmission to others in the healthcare setting. Next, notify the local health department and your County. If a medical emergency arises and you need to call 911, informed the first responders that you are being tested for the virus that causes COVID-19. Next, notified the local health department and your County. Prescriptions: Albuterol Sulfate [Albuterol Sulfate Hfa] 2 puff IH Q4H #1 [id number] Ibuprofen [Motrin 800 mg Tablet] 800 mg PO Q8H PRN #30 tab PRN Reason: Ondansetron [Zofran Odt 4 mg Tablet] 1 - 2 tab PO Q4H PRN #15 tab.rapdis PRN Reason: For Nausea/Vomiting
[2020-09-09 14:18] VITALS: BP 109/53
== END 2020-09-09 15:16 | disposition home or self-care (01) ==
LOC: ER 09:52
DX: U07.1 COVID-19 (principal); R07.9 Chest pain, unspecified; R51.9 Headache, unspecified; R50.9 Fever, unspecified; R19.7 Diarrhea, unspecified; R11.0 Nausea; M79.10 Myalgia, unspecified site; Z88.3 Allergy status to other anti-infective agents; Z88.0 Allergy status to penicillin
CPT/HCPCS: 93005; 99285; 96361; 96374; 96375; 36415; 87040; 82550; 83605; 83690; 85025; 85610; 87635; 81025; 80053; 81001; 84484; 82803; 87804; 71045; 93010; J3490; J1200; J1885; J0780; J2405; J7120; C9803